=== PATIENT | female | born 1980 | race Caucasian/White ===

== ENCOUNTER 2017-01-25 16:07 | Emergency (ER) | payer OTHER ==
[~2017-01-25] VITALS: Ht 180.3 cm; Wt 71.5 kg
[~2017-01-25 16:07] MED LIST: FLNCV PO
[2017-01-25 16:09] VITALS: TEMP 36.6; Ht 180.3 cm; Wt 71.5 kg
[2017-01-25] MEDS ORDERED: ACET325T96 PO (16:35)
[2017-01-25] MEDS ORDERED: IBUP-103 PO (16:35)
[2017-01-25] MEDS ORDERED: CLIN150C PO (16:35)
[2017-01-25 17:12] LABS: BASO % 0.4 %; BASO ABS # 0.05 K/uL (0-0.2); COMPLETE YES; EOS % 4.2 %; HEMATOCRIT 40.9 % (37-47); IG% 0.3 %; LYMPH % 25.3 %; LYMPH ABS # 3.32 K/uL (1.2-3.4); MEAN CELL VOLUME 91.1 fL (80-100); MEAN CORPUSCULAR HEMOGLOBIN 31.8 pg (25-34); MEAN PLATELET VOLUME 10.2 fL (7.4-10.4); MONO % 4.3 %; NEUT % 65.5 %; PLATELET COUNT 308 K/uL (130-400); RED BLOOD COUNT 4.49 M/uL (4.2-5.4); WHITE BLOOD COUNT 13.13 K/uL (4.8-10.8)
[2017-01-25] MEDS ORDERED: OPTIRAY 320 IV PRN (17:15)
[2017-01-25] MEDS ORDERED: ONDANSETRON INJ 2 MG/ML 2 ML VIAL IV STA (17:26)
[2017-01-25] MEDS ORDERED: MoRPHine SULFATE 10 MG/ML CARP/VIAL IV STA (17:26)
[2017-01-25] MEDS ORDERED: KETOROLAC TROMETHAMINE 30 MG/ML VIAL IV STA (17:26)
--- NOTE | 2017-01-25 17:52 | DIAGNOSTIC IMAGING REPORT ---
CT SCAN OF THE FACIAL BONES WITH IV CONTRAST CLINICAL HISTORY: Right facial pain and swelling. Clinical concern for Nasim's angina. COMPARISON STUDY: No priors. TECHNIQUE: High-resolution CT scan of the facial bones is performed following the IV administration of 118 cc of Optiray 320. Images are reviewed in the axial, sagittal, and coronal planes. IV contrast was administered without complication. CT DOSE: 732.86 mGy.cm FINDINGS: The skeletal structures are well mineralized. There is no evidence of facial bone fracture. The bony orbits are intact and the orbital contents are within normal limits. The zygomatic arches, nasal bones, and pterygoid plates are preserved. The maxilla and mandible are intact. There are no layering blood products within the paranasal sinuses. The sinuses and mastoids are clear. The visualized calvarium and upper cervical spine are maintained. Partially imaged brain parenchyma is within normal limits. Intracranial vessels at the skull base are patent. There is a small periapical lucency identified involving a right mandibular molar seen on axial image #158. There is no associated cortical breakthrough. A large periapical lucency is seen involving the right maxillary central and lateral incisors. A dental kirsten is seen involving the right maxillary central incisor. Additional caries are seen involving left maxillary molars. The pharyngeal soft tissues are normal as visualized. There is minimal deep soft tissue induration seen overlying the right mandible at the site of interest marked on the patient. No organized fluid collection is seen to indicate abscess. IMPRESSION: 1. There is no evidence of facial bone fracture. 2. There are scattered dental caries and periapical lucencies as detailed above. There is no clear evidence of cortical breakthrough, and no dental abscess is seen. Follow-up with dentistry is recommended. 3. There is mild induration of the deep soft tissues overlying the inferior aspect of the right mandible as above. This is indeterminant and may represent infection/cellulitis. No fluid collection is seen at this site. There is no convincing CT evidence of Nasim's angina. Note that this is a clinical diagnosis and clinical correlation will be required. Electronically signed by: Seth Hernandez M.D. 01/25/2017 5:50 PM Dictated Date/Time: 01/25/2017 5:41 PM
[2017-01-25] MEDS ORDERED: HYDR-5688 PO (18:10)
--- NOTE | 2017-01-25 18:12 | EMERGENCY ROOM VISIT NOTE ---
ED Visit Note First contact with patient: 16:29 CHIEF COMPLAINT: Right lower dental and jaw pain 10 days HISTORY OF PRESENT ILLNESS: Patient is a 36-year-old white female who presents to emergency department for evaluation of right-sided dental injury.. Patient states that she lost a filling from her right lower molar sometime ago, but only recently began to experience discomfort. She states that she noticed increasing pain and developed some swelling of her face on January 16 and was seen at an urgent care center where she was prescribed Augmentin. She was set up to see the dentist which she did on January 21. She reports that she had a root canal performed at Dr. Wu's office. She was told to continue the Augmentin. She had a temporary filling placed. She did fine the following day , then returned with increased pain and swelling. She went back to the office on the . The dental sound assistant took part of the filling off. She does report of bloody and foul tasting discharge in her mouth. She has been using Tylenol and ibuprofen for pain, which was initially controlling her symptoms and now has begun to be ineffective. She was switched from Augmentin to clindamycin 300 mg 3 times daily. She notes the swelling has gone down, but she continues to experience significant pain which she rates an 8/10 presently. It is located in the right jaw, radiating slightly to the sublingual space. Denies fever, chills, or loss of appetite. REVIEW OF SYSTEMS: Review of systems as per HPI. All other systems reviewed were negative. 10 systems reviewed. PMH: Electronic medical records are reviewed and summarized as above/below. See Problem List. SOCIAL HISTORY: Patient lives at home with her family. Smoker.. PHYSICAL EXAM: Vital Signs: Reviewed Nurse's notes. CONSTITUTIONAL: Patient is a well-appearing 36-year-old white female who is awake and alert and in no acute distress. Vital signs are stable. EARS: Tympanic membranes intact, not inflamed, have normal contour. External canals clear. MOUTH: Overall the patient has good dentition. The right lower molar in question has an obvious cavity, with temporary filling and is tender to percussion. There is slight swelling along the gumline although no focal abscess. Mucous membranes moist, no lesions, tongue and gums appear normal. THROAT: No pharyngeal injection, exudates, or tonsillar hypertrophy. Airway is patent. She has pain with opening her mouth although no yeison trismus. NECK: No lymphadenopathy. . FACE: She has tenderness to palpation over the angle of the mandible on the right, slight swelling, no increased warmth or redness. The skin is intact. No lymphangitic streaking. HEART: Regular rate and rhythm without murmur, ectopy, gallop, or rub. LUNGS: Clear to auscultation. Was drawn NEUROLOGICAL: Alert and cooperative. Sensory and motor functions grossly intact. EMERGENCY DEPARTMENT COURSE: IV access was obtained. CBC demonstrated a mildly elevated white count. She was medicated with Toradol 30 mg, Zofran 4 mg and morphine 6 mg IV with good relief of her pain. CT scan of the face with IV contrast was obtained. Findings are noted below. With the IV medications, the patient reported significant relief of her pain and felt much improved. While she does have some discomfort opening her mouth she does not have yeison trismus and I suspect her problem is more related to inadequate pain management rather deep space infection of the head or neck. She does not have any evidence for facial cellulitis or drainable abscess. She will be placed on Watchung for pain until she can follow-up with the dentist. She was discharged home with her driving. The patient rated her discomfort a 1/[address] SCAN OF THE FACIAL BONES WITH IV CONTRAST CLINICAL HISTORY: Right facial pain and swelling. Clinical concern for Nasim's angina. COMPARISON STUDY: No priors. TECHNIQUE: High-resolution CT scan of the facial bones is performed following the IV administration of 118 cc of Optiray 320. Images are reviewed in the axial, sagittal, and coronal planes. IV contrast was administered without complication. CT DOSE: 732.86 mGy.cm FINDINGS: The skeletal structures are well mineralized. There is no evidence of facial bone fracture. The bony orbits are intact and the orbital contents are within normal limits. The zygomatic arches, nasal bones, and pterygoid plates are preserved. The maxilla and mandible are intact. There are no layering blood products within the paranasal sinuses. The sinuses and mastoids are clear. The visualized calvarium and upper cervical spine are maintained. Partially imaged brain parenchyma is within normal limits. Intracranial vessels at the skull base are patent. There is a small periapical lucency identified involving a right mandibular molar seen on axial image #158. There is no associated cortical breakthrough. A large periapical lucency is seen involving the right maxillary central and lateral incisors. A dental kirsten is seen involving the right maxillary central incisor. Additional caries are seen involving left maxillary molars. The pharyngeal soft tissues are normal as visualized. There is minimal deep soft tissue induration seen overlying the right mandible at the site of interest marked on the patient. No organized fluid collection is seen to indicate abscess. IMPRESSION: 1. There is no evidence of facial bone fracture. 2. There are scattered dental caries and periapical lucencies as detailed above. There is no clear evidence of cortical breakthrough, and no dental abscess is seen. Follow-up with dentistry is recommended. 3. There is mild induration of the deep soft tissues overlying the inferior aspect of the right mandible as above. This is indeterminant and may represent infection/cellulitis. No fluid collection is seen at this site. There is no convincing CT evidence of Nasim's angina. Note that this is a clinical diagnosis and clinical correlation will be required. Problem List Medical Problems: (1) Vaginal delivery Status: Resolved Current/Historical Medications Scheduled Clindamycin Hcl (Cleocin), 300 MG PO BID Scheduled PRN Acetaminophen Tab (Tylenol), 650 MG PO Q3 PRN for Pain or Fever Hydrocodone/Acetaminophen 5MG/325MG (Watchung 5MG/325MG), 1-2 TABLETS PO Q4 PRN for Pain Ibuprofen Tab (Advil), 800 MG PO q3 PRN for Pain or Fever Allergies Coded Allergies: Sulfa Drugs (Verified Allergy, Unknown, UNK, 04/21/10) Vital Signs Date Time Temp Pulse Resp B/P Pulse Ox O2 Delivery O2 Flow Rate FiO2 01/25/17 18:49 59 18 136/92 100 01/25/17 16:09 36.6 75 18 145/94 98 Room Air Laboratory Results 01/25/17 17:00 Red Blood Count 4.49, Mean Corpuscular Volume 91.1, Mean Corpuscular Hemoglobin 31.8, Mean Corpuscular Hemoglobin Concent 35.0, Mean Platelet Volume 10.2, Neutrophils (%) (Auto) 65.5, Lymphocytes (%) (Auto) 25.3, Monocytes (%) (Auto) 4.3, Eosinophils (%) (Auto) 4.2, Basophils (%) (Auto) 0.4, Neutrophils # (Auto) 8.60, Lymphocytes # (Auto) 3.32, Monocytes # (Auto) 0.57, Eosinophils # (Auto) 0.55, Basophils # (Auto) 0.05 Test 01/25/17 17:00 White Blood Count 13.13 K/uL (4.8-10.8) Red Blood Count 4.49 M/uL (4.2-5.4) Hemoglobin 14.3 g/dL (12.0-16.0) Hematocrit 40.9 % (37-47) Mean Corpuscular Volume 91.1 fL (80-100) Mean Corpuscular Hemoglobin 31.8 pg (25-34) Mean Corpuscular Hemoglobin Concent 35.0 g/dl (32-36) Platelet Count 308 K/uL (130-400) Mean Platelet Volume 10.2 fL (7.4-10.4) Neutrophils (%) (Auto) 65.5 % Lymphocytes (%) (Auto) 25.3 % Monocytes (%) (Auto) 4.3 % Eosinophils (%) (Auto) 4.2 % Basophils (%) (Auto) 0.4 % Neutrophils # (Auto) 8.60 K/uL (1.4-6.5) Lymphocytes # (Auto) 3.32 K/uL (1.2-3.4) Monocytes # (Auto) 0.57 K/uL (0.11-0.59) Eosinophils # (Auto) 0.55 K/uL (0-0.5) Basophils # (Auto) 0.05 K/uL (0-0.2) RDW Standard Deviation 44.4 fL (36.4-46.3) RDW Coefficient of Variation 13.3 % (11.5-14.5) Immature Granulocyte % (Auto) 0.3 % Immature Granulocyte # (Auto) 0.04 K/uL (0.00-0.02) Medications Administered Medications (Trade) Dose Ordered Sig/Angel Luis Route Start Time Stop Time Status Last Admin Dose Admin Ondansetron HCl (Zofran Inj) 4 mg NOW STAT IV 01/25/17 17:26 01/25/17 17:27 DC 01/25/17 17:33 4 MG Ketorolac Tromethamine (Toradol Inj) 30 mg NOW STAT IV 01/25/17 17:26 01/25/17 17:27 DC 01/25/17 17:32 30 MG Morphine Sulfate (MoRPHine SULFATE INJ) 6 mg NOW STAT IV 01/25/17 17:26 01/25/17 17:27 DC 01/25/17 17:32 6 MG Acetaminophen/ Hydrocodone Bitart (Watchung 5/325mg Home Pack) 1 homepack UD ONCE PO 01/25/17 18:15 01/25/17 18:16 DC 01/25/17 18:41 1 HOMEPACK Departure Information Impression Primary Impression: Periapical abscess Additional Impression: Jaw pain Prescriptions Hydrocodone/Acetaminophen 5MG/325MG (Watchung 5MG/325MG) Tab 1-2 TABLETS PO Q4 Y for Pain, #20 TAB For Initial Treatment Prov: Yolanda Gibson PA 01/25/17 Referrals Yosvany Chino M.D. (PCP) Patient Instructions My [facility] Additional Instructions DO NOT drive, drink alcohol, operate machinery, or perform dangerous activities today. You were given medications in the ER that can affect your ability to safely function or operate a vehicle. Hydrocodone/Acetaminophen (Watchung) 5/325 mg: Take 1-2 pills every four hours for breakthrough pain. Avoid alcohol, operating machinery or dangerous equipment, working on ladders or roofs, DRIVING, or situations where being under the influence may be dangerous. It is recommended to use an [id number] stool softener such as Colace, 100mg twice daily while taking this medication to avoid constipation. Complete course of clindamycin as previously prescribed. Ibuprofen(Motrin, Advil) may be used for fever or pain. Use 600mg every six hours as needed. Take with food. Avoid using more than 2400mg in a 24 hour period. Do not use 2400mg per day for more than three consecutive days without physician direction. Prolonged inappropriate use can lead to stomach upset or ulcers. (AND/OR) Acetaminophen(Tylenol) may be used for fever or pain. Use 1000mg every six hours as needed. Avoid using more than 4000mg in a 24 hour period. Saltwater gargles after meals and before bedtime. Soft foods. Followup with your dentist this week as scheduled. Return to the emergency department for worsening pain, inability to swallow, fevers, vomiting, worsening symptoms or as needed. Problem Qualifiers
[2017-01-25] MEDS ORDERED: NORCO 5/325MG HOME PACK PO ONE (18:15)
[2017-01-25 18:49] VITALS: BP 136/92; PULSE 59; O2SAT 100
== END 2017-01-25 18:51 | disposition home or self-care (01) ==
LOC: C.EDB 16:08 → C.EDD 18:51
DX: K04.7 Periapical abscess without sinus (principal); R68.84 Jaw pain; F17.210 Nicotine dependence, cigarettes, uncomplicated

== ENCOUNTER 2017-04-01 02:26 | Emergency (ER) | payer OTHER ==
[~2017-04-01] VITALS: Ht 180.3 cm; Wt 73.0 kg
[~2017-04-01 02:26] MED LIST changes: +ACET325T96 PO; +CLIN150C PO; -FLNCV PO; +HYDR-5688 PO; +IBUP-103 PO
[2017-04-01 02:36] VITALS: Ht 180.3 cm; Wt 73.0 kg
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
[2017-04-01 03:36] LABS: BENZODIAZEPINE, URINE NEG (NEG); COCAINE,URINE NEG (NEG); PHENCYCLIDINE, URINE NEG (NEG)
[2017-04-01 03:36] LABS: HEMATOCRIT 43.3 % (37-47); MEAN CELL VOLUME 91.9 fL (80-100); MEAN CORPUSCULAR HEMOGLOBIN 32.3 pg (25-34); MEAN CORPUSCULAR HGB CONC 35.1 g/dl (32-36); MEAN PLATELET VOLUME 10.5 fL (7.4-10.4); PLATELET COUNT 257 K/uL (130-400); RED BLOOD COUNT 4.71 M/uL (4.2-5.4); WHITE BLOOD COUNT 10.04 K/uL (4.8-10.8)
[2017-04-01 03:57] LABS: ALT/SGPT 20 U/L (12-78); AST/SGOT 8 U/L (15-37); BLOOD UREA NITROGEN 9 mg/dl (7-18); BUN/CREATININE RATIO 15.5 (10-20); CALCIUM 8.8 mg/dl (8.5-10.1); CARBON DIOXIDE 22 mmol/L (21-32); CHLORIDE 113 mmol/L (98-107); CREATININE 0.61 mg/dl (0.60-1.20); GLUCOSE 99 mg/dl (70-99); POTASSIUM 3.6 mmol/L (3.5-5.1); SODIUM 143 mmol/L (136-145)
[2017-04-01 04:03] LABS: ACETAMINOPHEN < 2 ug/ml (10-30)
[2017-04-01 04:08] LABS: ALKALINE PHOSPHATASE 71 U/L (45-117); THYROID STIMULATING HORMONE 0.939 uIu/ml (0.300-4.500)
[2017-04-01 06:08] LABS: URINE APPEARANCE CLEAR (CLEAR); URINE BILIRUBIN NEG (NEG); URINE COLOR YELLOW; URINE NITRITE NEG (NEG); URINE PH 6.5 (4.5-7.5); URINE SPECIFIC GRAVITY 1.008 (1.000-1.030); UROBILINOGEN NEG (NEG)
[2017-04-01 06:20] LABS: MANUAL MICROSCOPIC REQUIRED? NO; REVIEW REQ? NO
[2017-04-01] MEDS ORDERED: DIPHTHERIA/TETANUS/PERTUSSIS 0.5 ML SYR/VIAL IM. ONE (08:00)
[2017-04-01] MEDS ORDERED: ONDANSETRON 4MG OD TAB ONE (10:51)
[2017-04-01] MEDS ORDERED: LORAZEPAM 0.5 MG TAB ONE (10:53)
[2017-04-01] MEDS ORDERED: LORAZEPAM 0.5 MG TAB SL PRN (11:00)
[2017-04-01 13:44] VITALS: BP 137/98; PULSE 94; O2SAT 95
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
== END 2017-04-01 13:43 ==
LOC: C.EDA 02:27
DX: S51.812A Laceration without foreign body of left forearm, initial encounter (principal); S51.811A Laceration without foreign body of right forearm, initial encounter; X78.1XXA Intentional self-harm by knife, initial encounter; S40.211A Abrasion of right shoulder, initial encounter; X58.XXXA Exposure to other specified factors, initial encounter; F17.200 Nicotine dependence, unspecified, uncomplicated; F10.129 Alcohol abuse with intoxication, unspecified; Z23 Encounter for immunization

== ENCOUNTER 2020-04-05 18:38 | Inpatient (IN) ==
[2020-04-05] MEDS ORDERED: ONDANSETRON INJ 2 MG/ML 2 ML VIAL IV STA (18:56)
[2020-04-05] MEDS ORDERED: MoRPHine SULFATE 10 MG/ML CARP/VIAL IV STA (18:56)
[2020-04-05] MEDS ORDERED: SODIUM CHLORIDE 0.9% 1000ML 1,000 ML IV ONE (18:56)
[2020-04-05] MEDS ORDERED: KETOROLAC TROMETHAMINE 15 MG/ML VIAL IV STA (18:56)
[2020-04-05 19:15] LABS: Basophils # (auto) 0.03 K/uL (0-0.2); Basophils % (auto) 0.3 %; Eosinophils % (auto) 1.1 %; Hematocrit (blood only) 45.1 % (37-47); Hemoglobin 15.9 g/dL (12.0-16.0); Immature Granulocytes # (auto) 0.02 K/uL (0.00-0.02); Immature Granulocytes % (auto) 0.2 %; Lymphocytes # (auto) 3.56 K/uL (1.2-3.4); Lymphocytes % (auto) 37.9 %; Mean Corpuscular Hemoglobin 36.5 pg (25-34); Mean Corpuscular Hgb Conc 35.3 g/dL (32-36); Mean Corpuscular Volume 103.4 fL (80-100); Monocytes # (auto) 0.53 K/uL (0.11-0.59); Monocytes % (auto) 5.6 %; Neutrophils # (auto) 5.15 K/uL (1.4-6.5); Neutrophils % (auto) 54.9 %; Platelet Count 169 K/uL (130-400); RDW Standard Deviation 49.5 fL (36.4-46.3); Red Blood Count 4.36 M/uL (4.2-5.4); White Blood Count 9.39 K/uL (4.8-10.8)
[2020-04-05 19:40] LABS: Albumin Level 3.3 gm/dl (3.4-5.0); BUN Creatinine Ratio 6.6 (10-20); Calcium 9.3 mg/dl (8.5-10.1); Creatinine Clr Calc Pharmacy 145.8 ml/min; Est GFR (African American) 131.2; Est GFR (Non-African American) 113.2; Potassium 3.4 mmol/L (3.5-5.1)
[2020-04-05 19:44] LABS: Albumin Globulin Ratio 0.8 (0.9-2); Bilirubin,Total 2.1 mg/dl (0.2-1); Total Protein 7.3 gm/dl (6.4-8.2)
[2020-04-05] MEDS ORDERED: HYDROmorphone INJ 0.5 MG/0.5 ML SYR IV STA (19:52)
--- NOTE | 2020-04-05 20:23 | CT Scan Report ---
CT abd pelvis wo con CT DOSE: 504.63 mGy.cm HISTORY: Pain llq pain, vomiting TECHNIQUE: Multiaxial CT images of the abdomen and pelvis were performed without contrast. A dose lo wering technique was utilized adhering to the principles of ALARA. COMPARISON STUDY: 03/11/2019 FINDINGS: Lung bases are clear. Mild fatty replacement of the liver. Spleen is unremarkable. The pancreatic body and tail shows evidence for hyperdensity and enlargement. There is moderate perip ancreatic infiltrative change. This appearance is suggestive of hemorrhagic pancreatitis. Kidneys negative for hydronephrosis. The bowel pattern is nonobstructive. IMPRESSION: 1. Findings consistent with hemorrhagic pancreatitis involving the pancreatic tail and to a lesser ex tent pancreatic body. 2. Moderate peripancreatic infiltrative change. 3. No evidence for abscess collection or pseudocyst. 4. Fatty replacement of the liver. 5. Otherwise negative study. ACT 112: Negative or not required by law. The above report was generated using voice recognition software. It may contain grammatical, syntax or spelling errors. Electronically signed by: Ace Barclay M.D. 04/05/2020 8:21 PM
[2020-04-05] MEDS ORDERED: HYDROmorphone INJ 1 MG/ML SYRINGE IV STA (20:45)
--- NOTE | 2020-04-05 22:13 | Emergency Department Note ---
History of Present Illness General Chief complaint: Abdominal Pain Stated complaint: ABD PAIN,VOMITING Time Seen by Provider: 04/05/20 18:47 Source: patient Mode of arrival: ambulatory Limitations: no limitations History of Present Illness Maximum Pain Intensity: 3 This patient is a 39-year-old female who presents to the emergency department for evaluation of abdominal pain. Patient reports that her pain started suddenly 3 to 4 hours ago. She reports that after eating, she had a sudden onset of left lower quadrant abdominal pain and vomiting. She has had multiple episodes of vomiting since then. She reports the pain is severe and rates her discomfort a 10/10. She states the pain was in her back but is now only in the abdomen. She feels slightly better when she holds her abdomen. She states that nothing worsens the pain. The pain is constant and sharp in nature. She denies any history of similar symptoms. She denies any urinary symptoms, fevers or change in bowel movements. She does report daily alcohol use and drinks a half bottle of rum each day. Home Medications Home Medications Medication Instructions Recorded Confirmed Type No Known Home Medications 04/05/20 04/05/20 History Allergies Allergy/AdvReac Type Severity Reaction Status Date / Time Sulfa (Sulfonamide Allergy Intermediate HIVES A Verified 04/05/20 19:30 Antibiotics) CHILD Past Med/Surg History Medical History No significant past medical history Family History Other Family history of thyroid problem Social History Preferred Language: Maltese marital status: current occupational status: employed Feels Safe at Home: Yes Smoking Status: Current every day smoker Hx Alcohol Use: Yes Alcohol type Comment: Edy's Wicked Alcohol Intake Frequency: Daily Alcohol Intake Frequency Comment: 4 Edy's Wicked for past 2 years Review of Systems A total of 10 systems reviewed and were otherwise negative Physical Exam Vital Signs Vital Signs - 24 hr 04/05/20 18:41 04/05/20 19:11 04/05/20 19:23 Temperature 36.6 C Temperature Source Oral Pulse Rate 116 H 90 88 Pulse Rate from SpO2 Sensor 90 90 Respiratory Rate 20 16 12 Respiratory Effort / Characteristics Non-Labored Spontaneous Respiratory Depth Normal Respiratory Pattern Regular Blood Pressure 154/108 H 164/102 H Blood Pressure Mean 123 118 Pulse Oximetry 95 97 96 Oxygen Delivery Method Room Air Sepsis Recent Fever Within 48 Hours No Sepsis New/Unexplained Change in Mental Status No Sepsis Action Taken by Nursing No Action Required 04/05/20 19:30 04/05/20 20:08 04/05/20 20:11 Temperature Temperature Source Pulse Rate 89 85 88 Pulse Rate from SpO2 Sensor 89 89 Respiratory Rate 12 18 20 Respiratory Effort / Characteristics Respiratory Depth Respiratory Pattern Blood Pressure 172/126 H 172/146 H Blood Pressure Mean 139 159 Pulse Oximetry 97 100 Oxygen Delivery Method Room Air Sepsis Recent Fever Within 48 Hours Sepsis New/Unexplained Change in Mental Status Sepsis Action Taken by Nursing 04/05/20 20:12 04/05/20 20:30 04/05/20 20:31 Temperature Temperature Source Pulse Rate 88 82 96 H Pulse Rate from SpO2 Sensor 87 82 96 H Respiratory Rate 23 16 18 Respiratory Effort / Characteristics Respiratory Depth Respiratory Pattern Blood Pressure Blood Pressure Mean Pulse Oximetry 100 98 100 Oxygen Delivery Method Sepsis Recent Fever Within 48 Hours Sepsis New/Unexplained Change in Mental Status Sepsis Action Taken by Nursing 04/05/20 20:57 04/05/20 20:58 04/05/20 21:00 Temperature Temperature Source Pulse Rate 81 77 84 Pulse Rate from SpO2 Sensor 81 78 85 Respiratory Rate 20 17 16 Respiratory Effort / Characteristics Respiratory Depth Respiratory Pattern Blood Pressure 176/114 H Blood Pressure Mean 119 Pulse Oximetry 100 99 99 Oxygen Delivery Method Room Air Room Air Sepsis Recent Fever Within 48 Hours Sepsis New/Unexplained Change in Mental Status Sepsis Action Taken by Nursing 04/05/20 21:01 04/05/20 21:30 04/05/20 21:32 Temperature Temperature Source Pulse Rate 84 80 80 Pulse Rate from SpO2 Sensor 84 83 84 Respiratory Rate 21 17 12 Respiratory Effort / Characteristics Respiratory Depth Respiratory Pattern Blood Pressure 153/89 H 155/88 H Blood Pressure Mean 116 103 Pulse Oximetry 99 97 94 Oxygen Delivery Method Room Air Room Air Room Air Sepsis Recent Fever Within 48 Hours Sepsis New/Unexplained Change in Mental Status Sepsis Action Taken by Nursing VITALS: Vitals are noted on the nurse's note and reviewed by myself. GENERAL: This is a 39-year-old female, in moderate distress secondary to pain. SKIN: The skin was without rashes, erythema, edema, or bruising. EARS: External auditory canals clear, tympanic membranes pearly stahl without erythema or effusion bilaterally. EYES: Pupils equal round and reactive to light and accommodation. Extraocular movements intact. MOUTH: Mucous membranes moist. Tonsils are not enlarged. Pharynx without erythema or exudate. NECK: Supple without nuchal rigidity. No lymphadenopathy. HEART: Regular rate and rhythm without murmurs gallops or rubs. LUNGS: Clear to auscultation bilaterally without wheezes, rales or rhonchi. ABDOMEN: Positive bowel sounds x 4. Abdomen is soft and nondistended. There is tenderness and guarding in the left lower quadrant. No rebound tenderness. NEURO: Patient was alert and oriented to person place and time. Course Reevaluation(s) Reevaluation #1: Patient was reevaluated and is having continued severe pain. 0.5 mg Dilaudid IV was ordered. Reevaluation #2: Patient reevaluated and findings discussed with the patient. She is agreeable to admission. She reports she is still having severe pain and 1 mg of Dilaudid was ordered. Consultations Consultation #1: Dr. Acosta [facility] hospitalist Administered Medications Discontinued Medications Hydromorphone HCl (Dilaudid) 0.5 mg IV NOW STA Stop: 04/05/20 19:53 Last Admin: 04/05/20 20:11 Dose: 0.5 mg Documented by: [id number] Hydromorphone HCl (Dilaudid) 1 mg IV NOW STA Stop: 04/05/20 20:46 Last Admin: 04/05/20 20:57 Dose: 1 mg Documented by: [id number] Sodium Chloride (Nss 1000ml) 1,000 mls @ 999 mls/hr IV .Q1H1M ONE Stop: 04/05/20 19:56 Last Infusion: 04/05/20 20:07 Dose: 0 mls/hr Documented by: [id number] Admin: 04/05/20 19:05 Dose: 999 mls/hr Documented by: [id number] Ketorolac Tromethamine (Toradol) 15 mg IV NOW STA Stop: 04/05/20 18:57 Last Admin: 04/05/20 19:07 Dose: 15 mg Documented by: [id number] Morphine Sulfate (Morphine Sulfate) 6 mg IV NOW STA Stop: 04/05/20 18:57 Last Admin: 04/05/20 19:09 Dose: 6 mg Documented by: [id number] Ondansetron HCl (Zofran) 4 mg IV NOW STA Stop: 04/05/20 18:57 Last Admin: 04/05/20 19:05 Dose: 4 mg Documented by: [id number] Medical Decision Making Differential Diagnosis Differential diagnosis includes appendicitis, ovarian cyst, ovarian torsion, ectopic , TOA, PID, infections, diverticulitis, UTI, obstruction, mesenteric ischemia, aortic pathology, inflammatory bowel disease, renal colic, PUD, pancreatitis, biliary pathology, hernia, volvulus, constipation, as well as other pathologies. Home Medications Current Medication List: was personally reviewed by me Laboratory Data Attestation: I reviewed the patient's lab results. Result diagrams: 04/05/20 18:54 04/05/20 18:54 Lab Results 04/05/20 04/05/20 Range/Units 18:54 18:54 WBC 9.39 (4.8-10.8) K/uL RBC 4.36 (4.2-5.4) M/uL Hgb 15.9 (12.0-16.0) g/dL Hct 45.1 (37-47) % MCV 103.4 H (80-100) fL MCH 36.5 H (25-34) pg MCHC 35.3 (32-36) g/dL RDW Std Deviation 49.5 H (36.4-46.3) fL RDW Coeff of Nicolette 13.0 (11.5-14.5) % Plt Count 169 (130-400) K/uL MPV 12.0 H (7.4-10.4) fL Immature Gran % (Auto) 0.2 % Neut % (Auto) 54.9 % Lymph % (Auto) 37.9 % Preston % (Auto) 5.6 % Eos % (Auto) 1.1 % Baso % (Auto) 0.3 % Neut # (Auto) 5.15 (1.4-6.5) K/uL Lymph # (Auto) 3.56 H (1.2-3.4) K/uL Preston # (Auto) 0.53 (0.11-0.59) K/uL Eos # (Auto) 0.10 (0-0.5) K/uL Baso # (Auto) 0.03 (0-0.2) K/uL Immature Gran # (Auto) 0.02 (0.00-0.02) K/uL Sodium 137 (136-145) mmol/L Potassium 3.4 L (3.5-5.1) mmol/L Chloride 99 (98-107) mmol/L Carbon Dioxide 21 (21-32) mmol/L Anion Gap 17.0 H (3-11) BUN 4 L (7-18) mg/dl Creatinine 0.64 (0.6-1.2) mg/dl Est Cr Clr Drug Dosing 145.8 ml/min Est GFR ( Amer) 131.2 Est GFR (Non-Af Amer) 113.2 BUN/Creatinine Ratio 6.6 L (10-20) Glucose 124 H (70-99) mg/dl Calcium 9.3 (8.5-10.1) mg/dl Total Bilirubin 2.1 H (0.2-1) mg/dl AST 164 H (15-37) U/L ALT 71 (12-78) U/L Alkaline Phosphatase 177 H (45-117) U/L Total Protein 7.3 (6.4-8.2) gm/dl Albumin 3.3 L (3.4-5.0) gm/dl Globulin 4.0 (2.5-4.0) gm/dl Albumin/Globulin Ratio 0.8 L (0.9-2) Lipase 536 H (73-393) U/L Specimen Hemolysis Imaging Data Attestation: I personally reviewed and interpreted this imaging study as follows: Radiologist's Impression: CT abd pelvis wo con CT DOSE: 504.63 mGy.cm HISTORY: Pain llq pain, vomiting TECHNIQUE: Multiaxial CT images of the abdomen and pelvis were performed without contrast. A dose lowering technique was utilized adhering to the principles of ALARA. COMPARISON STUDY: 03/11/2019 FINDINGS: Lung bases are clear. Mild fatty replacement of the liver. Spleen is unremarkable. The pancreatic body and tail shows evidence for hyperdensity and enlargement. There is moderate peripancreatic infiltrative change. This appearance is suggestive of hemorrhagic pancreatitis. Kidneys negative for hydronephrosis. The bowel pattern is nonobstructive. IMPRESSION: 1. Findings consistent with hemorrhagic pancreatitis involving the pancreatic tail and to a lesser extent pancreatic body. 2. Moderate peripancreatic infiltrative change. 3. No evidence for abscess collection or pseudocyst. 4. Fatty replacement of the liver. 5. Otherwise negative study. Blood Pressure Blood Pressure Findings: Elevated blood pressure Blood Pressure Disposition: further management by hospitalist SHASTA Corbin Continuous telemetry monitor: Order was placed for continuous telemetry monitor. Patient was placed on the telemetry monitor. Patient was noted to be in normal sinus rhythm at an initial rate of 116 bpm. The patient is a 39-year-old female who presents today complaining of left lower abdominal pain with a sudden onset a few hours prior to arrival. Labs revealed no leukocytosis or concerning anemia. Mildly elevated anion gap at 17. Labs otherwise significant for elevated AST of 164, alkaline phosphatase 177. Lipase is elevated at 536. CT of the abdomen/pelvis was performed and reviewed by radiology and shows evidence of hemorrhagic pancreatitis. Patient received multiple doses of IV pain medication while in the emergency department, as well as IV Zofran and a 1 L normal saline bolus. Patient was informed of all findings. I spoke with the [facility] hospitalist, Dr. Acosta, who agreed to evaluate the patient for further care. Impression & Plan Acute hemorrhagic pancreatitis Discharge Plan Visit Data *Final* Discharge Date/Time: 04/05/20 22:17 Chief Complaint: Abdominal Pain Stated Complaint: ABD PAIN,VOMITING ED Provider: Luis Kwan ED Midlevel Provider: Tsering Laird Discharge Problem: Acute hemorrhagic pancreatitis Patient Disposition: Admitted As Inpatient Discharge Instructions Interventions: ED Discharge Assessment Last Done: 04/05/20 22:17
[2020-04-05] MEDS ORDERED: GABAPENTIN 1200MG ALCOHOL WITHDRAWAL LOAD PO STA (22:34)
[2020-04-05] MEDS ORDERED: NITROGLYCERIN SL 0.4 MG/TAB TAB SL PRN (22:34)
[2020-04-05] MEDS ORDERED: MULTI-VITAMIN INFUSION 10 ML, THIAMINE HCL 100 MG, FOLIC ACID 1 MG in SODIUM CHLORIDE 0... IV ONE (22:34)
[2020-04-05] MEDS ORDERED: ONDANSETRON INJ 2 MG/ML 2 ML VIAL IV PRN (22:34)
[2020-04-05] MEDS ORDERED: LORazepam 3 MG/6 ML VIAL IV PRN (22:34)
[2020-04-05] MEDS ORDERED: LORazepam 1 MG/2 ML VIAL IV PRN (22:34)
[2020-04-05] MEDS ORDERED: ATIVAN IV ALCOHOL WITHDRAWL IV PRN (22:34)
[2020-04-05] MEDS ORDERED: ACETAMINOPHEN 325 MG TAB PO PRN (22:34)
[2020-04-05] MEDS ORDERED: LORazepam 2 MG/4 ML VIAL IV PRN (22:34)
[2020-04-05] MEDS ORDERED: cloNIDine HCL 0.1 MG TAB PO PRN (22:34)
[2020-04-05] MEDS ORDERED: GABAPENTIN 600 MG TAB PO SCH (23:00)
[2020-04-05] MEDS: PANTOprazole 40 MG in SYRINGE 0 ML IV SCH (23:18)
[2020-04-05] MEDS: THIAMINE HCL 100 MG in SYRINGE 9 ML IV SCH (23:18)
[2020-04-05] MEDS: FOLIC ACID 1 MG in SYRINGE 9.8 ML IV SCH (23:19)
[2020-04-05] MEDS: HYDROmorphone INJ 1 MG/ML SYRINGE IV PRN (23:30)
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
[2020-04-06] MEDS: LACTATED RINGER'S 1,000 ML IV SCH ×2 (01:38→05:41)
[2020-04-06] MEDS: HYDROmorphone INJ 1 MG/ML SYRINGE IV PRN ×5 (04:06→18:04)
[2020-04-06] MEDS: GABAPENTIN 600 MG TAB PO SCH ×3 (04:06→10:57)
[2020-04-06 05:06] LABS: Basophils # (auto) 0.04 K/uL (0-0.2); Basophils % (auto) 0.5 %; Eosinophils # (auto) 0.08 K/uL (0-0.5); Eosinophils % (auto) 0.9 %; Hemoglobin 13.4 g/dL (12.0-16.0); Immature Granulocytes # (auto) 0.01 K/uL (0.00-0.02); Immature Granulocytes % (auto) 0.1 %; Lymphocytes # (auto) 3.12 K/uL (1.2-3.4); Lymphocytes % (auto) 36.9 %; Mean Corpuscular Hemoglobin 35.9 pg (25-34); Mean Corpuscular Hgb Conc 34.4 g/dL (32-36); Mean Corpuscular Volume 104.6 fL (80-100); Mean Platelet Volume 11.4 fL (7.4-10.4); Monocytes # (auto) 0.62 K/uL (0.11-0.59); Monocytes % (auto) 7.3 %; Neutrophils # (auto) 4.59 K/uL (1.4-6.5); Neutrophils % (auto) 54.3 %; Platelet Count 140 K/uL (130-400); RDW Coefficient of Variation 13.1 % (11.5-14.5); Red Blood Count 3.73 M/uL (4.2-5.4); White Blood Count 8.46 K/uL (4.8-10.8)
[2020-04-06 05:29] LABS: BUN Creatinine Ratio 9.7 (10-20); Creatinine Clr Calc Pharmacy 163.3 ml/min; Est GFR (African American) 136.3; Est GFR (Non-African American) 117.6; Magnesium 1.3 mg/dl (1.8-2.4); Potassium 3.3 mmol/L (3.5-5.1)
[2020-04-06] MEDS ORDERED: POTASSIUM CHLORIDE 20 MEQ/15 ML UDC PO STA (05:53)
[2020-04-06] MEDS: MAGNESIUM SULFATE / D5W 1 GM/100 ML BAG IV SCH ×3 (06:30→08:57)
--- NOTE | 2020-04-06 08:06 | Hospitalist Progress Note ---
Date of Service April 06, 2020 Assessment & Plan (1) Acute hemorrhagic pancreatitis: ASSESSMENT AND PLAN: This 39-year-old female with history of alcoholism, presents with abdominal pain and found to be acute hemorrhagic pancreatitis. 1. Acute hemorrhagic pancreatitis, most likely alcohol induced: GI to see today. Hemodynamics are stable currently. Aggressive fluids with IV Ringer lactate 250 mL per hour, Pain control, Coresafe tube ordered and start tube feeds 2. Alcoholism: Monitor for alcohol withdrawal. Banana bag, IV thiamine, IV folic acid in a.m., vitamin B12 and folate levels in a.m. We will place her on gabapentin withdrawal protocol with IV Ativan p.r.n. Close monitoring for withdrawal. Needs counseling. 3. Hypomagnesemia-Replete IV 4. Hypokalemia-Replete IV 5. Tobacco abuse: Needs counseling. Placed on nicotine patch. 6. Deep venous thrombosis prophylaxis: Sequential compression devices. Labs reviewed ROS-No Headache, No Visual Changes, No Nausea, No Vomiting, No Fever, No Chills, No Neck Pain or Stiffness, No Chest Pain, No Palpitations, No SOB, No BARRAZA, No Cough, No Sputum, No Wheezing, + Abdominal Pain, No Diarrhea, No Hematemesis, No Hemoptysis, No Unexpected Weight Loss, No Flank pain, No Melena, No Hematochezia, No Frequency, No Urgency, No Burning, No Hematuria, No Rashes, No Diaphoresis. Appetite is Normal Physical Exam Gen-AAO x 3, NAD, Afebrile Head-NCAT, EOMI, PERRLA, Anicteric Sclera, No Posterior Pharyngeal Erythema Neck-Supple, No JVD, No Thyromegaly, No Masses, No LAD, No Bruits Lungs-Clear to Auscultation Bilaterally, No Rales, No Rhonchi, No Wheezing, No Crepitus Chest-No S4, +S1, +S2, No S3, No Murmurs, No Rubs, No Gallops, No Ectopy Abdomen-Soft, Bowel Sounds Present, Non Tender, Non Distended, No Hepatomegaly, No Splenomegaly, No Palpable Masses, No Rebound, No Rigidity, No Guarding Musculoskeletal-Full Range of Motion Bilaterally, No CVAT Extremities-No Cyanosis, No Clubbing, No Edema Nuero-Cranial Nerves II-XII grossly intact, Motor WNL, DTRs WNL, Strength WNL, Non Focal Psych-Normal Mood Admission and Anticipated Discharge Date Admission Date: April 05, 2020 Anticipated date of discharge: 04/09/20 Results & Data Results & Data ([facility]) Vital Signs (Past 12 Hours) Vital Signs Temp Pulse Pulse Resp BP BP Pulse Ox 04/05/20 22:36 36.7 C 85 20 169/108 H 97 04/05/20 22:34 36.5 C 83 20 162/101 H 96 04/05/20 22:01 80 16 199/105 H 96 04/05/20 22:00 82 16 95 04/05/20 21:32 80 12 155/88 H 94 04/05/20 21:30 80 17 97 04/05/20 21:01 84 21 153/89 H 99 04/05/20 21:00 84 16 99 04/05/20 20:58 77 17 99 04/05/20 20:57 81 20 176/114 H 100 04/05/20 20:31 96 H 18 100 04/05/20 20:30 82 16 98 04/05/20 20:12 88 23 100 04/05/20 20:11 88 20 172/146 H 100 04/05/20 20:08 85 18
[2020-04-06 08:12] LABS: Folate (Folic Acid) > 24.00 ng/ml (>5.38); Vitamin B12 1184 pg/ml (211-911)
[2020-04-06] MEDS ORDERED: MAGNESIUM SULFATE / D5W 1 GM/100 ML BAG IV STA (08:18)
[2020-04-06] MEDS ORDERED: POTASSIUM CHLORIDE 40 MEQ in D5W AND 1/2NSS 1,000 ML/1,000 ML BAG IV SCH (09:00)
[2020-04-06] MEDS: FOLIC ACID 1 MG in SYRINGE 9.8 ML IV SCH (09:00)
[2020-04-06] MEDS: THIAMINE HCL 100 MG in SYRINGE 9 ML IV SCH (09:00)
[2020-04-06] MEDS ORDERED: NICOTINE 21 MG/24 HR TDSY TD SCH (09:00)
[2020-04-06] MEDS: PANTOprazole 40 MG in SYRINGE 0 ML IV SCH (09:01)
--- NOTE | 2020-04-06 10:07 | Gastrointestinal Consultation ---
Date of Consultation April 06, 2020 Assessment & Plan (1) Acute hemorrhagic pancreatitis: Pt is a 39 y/o female w ETOH abuse, presented w abd pain, nausea; noted to have elevated LFTs, and CT abd/pelvis finding of hemorrhagic pancreatitis - Keep NPO - IVF hydration w LR - MRCP today to r/o biliary stone - Symptomatic management w antiemetics and analgesics prn Supervising Physician Co-Signing Physician Notes I saw and evaluated the patient. She has a long history of alcohol abuse and presented to the emergency room for evaluation of discomfort. She was found to have evidence of severe pancreatitis with possible hemorrhagic changes in the pancreatic tail extending into the pelvis. She notes that her pain is slightly improved as compared to baseline. Physical examination No obvious distress, mild epigastric tenderness Patient somewhat tremulous Impression: Patient with a long history of alcohol abuse resulting in acute severe pancreatitis. Given the hemorrhagic changes I worry about the potential for a pseudoaneurysm. As she appears to be had some bleeding I would recommend a referral to a tertiary cancer in case rebleeding occurs as she would need urgent interventional radiology support which is not available locally. Recommendations Continue IV hydration Continue monitoring for alcohol withdrawal symptoms Recommend referral to a tertiary center in case interventional radiology servic es are needed History of Present Illness Reason for Consultation: Hemorrhagic pancreatitis Requesting Physician: Dr. Zak Greenwood Attending Physician: Dr. Morgan Avila History of Present Illness Pt is a 39 y/o female who presented yesterday w c/o diffuse abd pain, nausea. She admit to drink 1 bottle of rum daily, citing lots of stressors in family life. In last month she's been having upper abd pain which is progressively worse and now w radiation towards sides. She denies fever, chills, jaundice, CP, SOB. + nausea but no vomiting, denies any bowel habit changes. Upon eval, labs notable for increased LFTs: Tbili 2.1, AST 164, ALT 71, alk phose 177. Lipase 500 -> 210. Ct abd/pelvis w/o contrast showed: hemorrhagic pancreatitis involving the pancreatic tail and to a lesser extent pancreatic body w/o abscess collection or pseudocyst. + fatty liver. Allergies Allergy/AdvReac Type Severity Reaction Status Date / Time Sulfa (Sulfonamide Allergy Intermediate HIVES A Verified 04/05/20 19:30 Antibiotics) CHILD Home Medications Home Medications Medication Instructions Recorded Confirmed Type No Known Home Medications 04/05/20 04/05/20 History Patient History Medical History No significant past medical history Family History Other Family history of thyroid problem Social History Preferred Language: Faroese Communication Ability: Effective Beliefs That Will Affect Care: None marital status: Current Living Situation: Family current occupational status: employed Feels Safe at Home: Yes Safety Concerns: Feels Safe At This Time Smoking Status: Current every day smoker Tobacco Type: cigarettes ; Cigarettes Per Day: 20 ; Do You Dip or Chew Tobacco: No ; Second Hand Exposure: No ; Tobacco Cessation Education Requested by Patient: No Hx Alcohol Use: Yes Alcohol type: hard liquor Alcohol type Comment: Edy's Wicked Alcohol Intake Frequency: Daily Alcohol Intake Frequency Comment: 4 Edy's Wicked for past 2 years Hx Substance Use: No Review of Systems Review of Systems: All systems reviewed & are unremarkable except as noted in HPI & below Physical Exam Constitutional: WD/WN, vitals as above well groomed, cooperative and comfortable Eyes: PERRL, conjunctivae normal, anicteric sclerae ENMT: external ear and nose normal, oropharynx normal Respiratory: normal respiratory effort, lungs clear to auscultation Cardiovascular: RRR, no murmur, no edema Gastrointestinal (Abdomen): Inspection/Auscultation: + hypoactive bowel sounds Percussion/Palpation: + abdomen tender (epigastric, LUQ, LLQ) and abdomen soft Skin: no rashes, warm and dry no jaundice Neurologic: Motor/Sensory: no asterixis Psychiatric: A+Ox3, euthymic affect Lymphatic: no lymphedema Results & Data ([facility]) Vital Signs (Past 12 Hours) Vital Signs Temp Pulse Resp BP Pulse Ox 04/06/20 08:53 37.1 C 86 20 164/95 H 99 04/05/20 22:36 36.7 C 85 20 169/108 H 97 04/05/20 22:34 36.5 C 83 20 162/101 H 96
[2020-04-06] MEDS: POTASSIUM CHLORIDE / WTR 10 MEQ/100 ML PLCT IV SCH ×4 (10:40→17:54)
--- NOTE | 2020-04-06 12:47 | Magnetic Resonance Report ---
MRCP CLINICAL HISTORY: Vomiting. Pancreatitis. COMPARISON STUDY: Abdominal CT dated 04/05/2020. TECHNIQUE: Abdominal MRCP is performed utilizing various T2-weighted sequences in the axial and coron al planes. IV contrast was not administered for this examination. 3-D reformats are created and asses sed. FINDINGS: The gallbladder is normal in appearance. No gallstones are identified. There is no intra or extrahepa tic biliary ductal dilatation. The common bile duct measures up to 6 mm in diameter. There are no audra ling defects to suggest choledocholithiasis. The pancreatic duct is normal in caliber. The liver is enlarged, measuring 19 cm in length. Hepatic steatosis was shown on the recent CT scan. The unenhanced spleen, right adrenal gland, and kidneys are grossly normal. An 11 mm left adrenal sugar noma is unchanged. The abdominal aorta is normal in caliber. The pancreatic head and neck are normal in appearance. There is inflammatory change and fluid identif ied around the distal body and tail consistent with acute pancreatitis. There is a 4.6 cm complex flu id collection identified in the region of the pancreatic tail corresponding to hemorrhagic pancreatit is when correlated with yesterday's CT scan. There is fluid tracking seen inferiorly within the retro peritoneum and the left paracolic gutter. Trace pleural effusions are noted. The bony structures are intact as visualized. IMPRESSION: 1. Normal MRCP assessment of the biliary tree. No gallstones are identified and there is no intra or extrahepatic biliary ductal dilatation. 2. Findings of hemorrhagic pancreatitis are similar to yesterday's CT scan. 3. Trace pleural effusions. Dictated: 04/06/2020 12:27 PM Transcribed: 04/06/2020 12:42 PM Angelic [id number] Luzmaria Electronically signed by: Seth Hernandez M.D. 04/06/2020 12:45 PM
[2020-04-06 13:04] LABS: Appearance Urine Cloudy (Clear); Bacteria Urine Automated Negative (Negative); Blood Urine Negative (Negative); Color Urine Orange; Epithelial Cell Urine Auto >30 /lpf (0-5); Glucose Urine UA Negative (Negative); Ketones Urine Negative (Negative); Leukocyte Esterase Urine 1+ (Negative); Nitrite Urine Positive (Negative); Protein Urine Trace (Negative); RBC Urine Automated 0-4 /hpf (0-4); Specific Gravity Urine 1.028 (1.000-1.030); Urobilinogen Urine Positive (Negative); pH Urine 6.5 (4.5-7.5)
[2020-04-06 13:09] LABS: Bilirubin Urine 2+ (Negative)
[2020-04-06 13:13] LABS: Ictotest Urine Positive (Negative)
--- NOTE | 2020-04-06 16:12 | Discharge Summary ---
Date of Service April 06, 2020 Admission HPI Per Admitting Provider 39-year-old female with past medical history significant for tobacco abuse, alcoholism, presents with abdominal pain. The patient states since last 1 month, she is having nausea, but today after eating her lunch, she had severe abdominal pain in her epigastric region, now it is going to the left flank region. It was severe, so she came to the ER and found to have acute hemorrhagic pancreatitis. She got significant pain medication, currently pain is better controlled. Hemodynamics are stable. The patient says she drinks about 1 bottle of rum everyday for last 2 years, worried about the withdrawal. Denies any other complaints. Denies any headache, no blurred vision, no earache. Has some allergies. No sore throat, has smoker's cough, no shortness of breath, no chest pain. Normal bowel and bladder movements. No burning micturition, no blood in the stools or black stools. No swelling in the legs, no rash. Lives with her . Ambulates okay. Admission Exam Per Admitting Provider GENERAL: The patient is of moderate build, not in acute distress. VITAL SIGNS: Temperature 36.6, pulse 81, respiratory rate 20, blood pressure 176/114, oxygen 100% on room air. HEENT: No pallor, no icterus. Pupils equal, round, reactive to light. Extraocular muscles intact. Oral mucosa dry. NECK: No JVD. Supple. CARDIOVASCULAR: S1, S2, regular rate and rhythm, no murmur, no gallop. RESPIRATORY SYSTEM: Normal AP diameter. No accessory muscle use. No wheezing, no crackles. ABDOMEN: Soft, bowel sounds sluggish, tenderness in epigastric and left periumbilical region. No rigidity. CENTRAL NERVOUS SYSTEM: Cranial nerves II-XII grossly intact, nonfocal. EXTREMITIES: No edema, no erythema. Principal Diagnosis 1. Acute hemorrhagic pancreatitis, 2. Alcoholism 3. Hypomagnesemia 4. Hypokalemia 5. Tobacco abuse Discharge Exam See below Discharge Data Allergies Allergy/AdvReac Type Severity Reaction Status Date / Time Sulfa (Sulfonamide Allergy Intermediate HIVES A Verified 04/05/20 19:30 Antibiotics) CHILD Consultations 04/05/20 20:49 ED Decision to Admit Stat 04/05/20 22:34 Consult Case Management - Discharge Planning Routine 04/06/20 07:00 Consult Gastroenterology Routine Ordered Studies 04/05/20 18:56 CT abd pelvis wo con Stat 04/06/20 09:04 MR MRCP Stat Current Diagnoses Acute pancreatitis without necrosis or infection, unspecified (04/05/20) Allergies Sulfa (Sulfonamide Antibiotics) Allergy (Intermediate, Verified 04/05/20 19:30) HIVES A CHILD Height/Weight/Isolation Height 5 ft 11 in Weight 87 kg Chemistry 04/05/20 04/06/20 18:54 04:49 Sodium 137 140 Potassium 3.4 L 3.3 L Chloride 99 106 Carbon Dioxide 21 27 Anion Gap 17.0 H 7.0 BUN 4 L 6 L Creatinine 0.64 0.57 L Glucose 124 H 84 Urinalysis 04/06/20 12:15 Urine Color Merrick Urine Appearance Cloudy A Urine pH 6.5 Ur Specific [place] 1.028 Urine Protein Trace H Urine Glucose (UA) Negative Urine Ketones Negative Urine Blood Negative Urine Nitrite Positive A Urine Bilirubin 2+ H Hospital Course (1) Acute hemorrhagic pancreatitis: ASSESSMENT AND PLAN: This 39-year-old female with history of alcoholism, presen ts with abdominal pain and found to be acute hemorrhagic pancreatitis. 1. Acute hemorrhagic pancreatitis, most likely alcohol induced: GI to see today. Hemodynamics are stable currently. Aggressive fluids with IV Ringer lactate 250 mL per hour, Pain control, Coresafe tube ordered and start tube feeds 2. Alcoholism: Monitor for alcohol withdrawal. Banana bag, IV thiamine, IV folic acid in a.m., vitamin B12 and folate levels in a.m. We will place her on gabapentin withdrawal protocol with IV Ativan p.r.n. Close monitoring for withdrawal. Needs counseling. 3. Hypomagnesemia-Replete IV 4. Hypokalemia-Replete IV 5. Tobacco abuse: Needs counseling. Placed on nicotine patch. 6. Deep venous thrombosis prophylaxis: Sequential compression devices. MRCP noted, GI rec transfer to [facility] c C/S to IR in case she develops a Pseudoaneurysm that bleeds. Transfer to [facility] s/o Dr Middleton ROS-No Headache, No Visual Changes, No Nausea, No Vomiting, No Fever, No Chills, No Neck Pain or Stiffness, No Chest Pain, No Palpitations, No SOB, No BARRAZA, No Cough, No Sputum, No Wheezing, + Abdominal Pain, No Diarrhea, No Hematemesis, No Hemoptysis, No Unexpected Weight Loss, No Flank pain, No Melena, No Hematochezia, No Frequency, No Urgency, No Burning, No Hematuria, No Rashes, No Diaphoresis. Appetite is Normal Physical Exam Gen-AAO x 3, NAD, Afebrile Head-NCAT, EOMI, PERRLA, Anicteric Sclera, No Posterior Pharyngeal Erythema Neck-Supple, No JVD, No Thyromegaly, No Masses, No LAD, No Bruits Lungs-Clear to Auscultation Bilaterally, No Rales, No Rhonchi, No Wheezing, No Crepitus Chest-No S4, +S1, +S2, No S3, No Murmurs, No Rubs, No Gallops, No Ectopy Abdomen-Soft, Bowel Sounds Present, Non Tender, Non Distended, No Hepatomegaly, No Splenomegaly, No Palpable Masses, No Rebound, No Rigidity, No Guarding Musculoskeletal-Full Range of Motion Bilaterally, No CVAT Extremities-No Cyanosis, No Clubbing, No Edema Nuero-Cranial Nerves II-XII grossly intact, Motor WNL, DTRs WNL, Strength WNL, Non Focal Psych-Normal Mood Total Time Total Time Spent Total Time Spent (In Minutes): 45 mins Total Time Includes: Examination of the Patient, Discharge Planning, Medication Reconciliation and Communication With Other Providers Discharge Plan Discharge Items Patient Disposition: Transfer Acute Care Hospital Reason For Visit: ABDOMINAL PAIN Discharge Diagnosis: 1. Acute hemorrhagic pancreatitis, 2. Alcoholism 3. Hypomagnesemia 4. Hypokalemia 5. Tobacco abuse Condition on Discharge: Serious Activity: As commented below Activity Comment: Bedrest Lifting: None Bathing: No limitations Exercise/Sports: None Driving/Machine Use: None Weightbearing: Full weightbearing Non-emergency contact: Primary Care Provider and Specialist Call non-emergency contact if: you have any medication questions Follow-up/Referrals: Yosvany Chino [Primary Care Provider] - Diet: Nothing by Mouth Addtl Attending Provider Instructions: Encouraged patient to allow tube feeds Pending Studies at Discharge: No Stand-Alone Forms: My [facility] [place] [employer] Skilled Items Patient informed of condition?: Yes DNR: No Discharge Level of Care: Other Communicable Disease: No Discharge Prognosis: Improving Lines: Peripheral IV Urinary Catheter: No Medications and DC Order Prescriptions: No Action No Known Home Medications RF: 0 Admission Data Admit Date/Time: 04/05/20 21:56 Attending Provider: Zak Greenwood Admit Provider: Crow Acosta Primary Care Provider: Yosvany Chino Other Providers: Charisse Solano ; Polina Alexandra ; Lei Dsouza ; Nimo Carrera ; Jose Veronica ; Morgan Avila ; Viji Salomon ; Alice Yepez ; Luis Garsia ; Abdulaziz Solano ; Sheryl Parker ; Janice Acosta ; Aaliyah Scott ; Lorraine Stokes ; Dorcas Olmos ; Crow Acosta
[2020-04-06] MEDS ORDERED: GABAPENTIN 600 MG TAB PO SCH (18:00)
[2020-04-07] MEDS ORDERED: GABAPENTIN 600 MG TAB PO SCH (22:00)
[2020-04-09] MEDS ORDERED: GABAPENTIN 600 MG TAB PO SCH (10:00)
== END 2020-04-06 19:47 | disposition short-term general hospital (02) | DRG 440 ==
LOC: ED 18:38 → 1E 21:56

== ENCOUNTER 2020-06-09 11:08 | Inpatient (IN) ==
[2020-06-09] MEDS ORDERED: ONDANSETRON INJ 2 MG/ML 2 ML VIAL IV STA (11:31)
[2020-06-09] MEDS ORDERED: THIAMINE HCL 200 MG in SODIUM CHLORIDE 0.9% 50 ML IV STA (11:31)
[2020-06-09] MEDS ORDERED: LORazepam 1 MG/2 ML VIAL IV STA (11:31)
[2020-06-09] MEDS ORDERED: FAMOTIDINE 20MG IV PUSH 20 MG/5 ML SYR IV STA (11:33)
[2020-06-09] MEDS ORDERED: PANTOprazole 40 MG in SYRINGE 0 ML IV ONE (11:33)
[2020-06-09] MEDS ORDERED: SODIUM CHLORIDE 0.9% 1000ML 1,000 ML IV SCH (11:45)
--- NOTE | 2020-06-09 12:00 | Emergency Department Note ---
Impression & Plan Alcoholic pancreatitis, Abdominal pain, Vomiting, UTI (urinary tract infection) ED Provider Note NAME: JOSLYN STINSON AGE: 39 SEX: F : 1980 ARRIVES VIA: Walk-In INFORMANT: Patient, ED PROVIDER(S): Luis Kwan DO CHIEF COMPLAINT: Nausea vomiting HPI: The patient is a 39-year-old female who presented to the emergency department for an evaluation of nausea vomiting. The patient has been experiencing upper abdominal pain abdominal distention nausea and vomiting over the last 4 days. She has a history of chronic alcoholism. She normally drinks liquor. She states that she was in our facility recently with similar complaints and at that time was diagnosed with pancreatitis. She denies having any back pain but does complain of lower chest pain. She describes upper abdominal pain but diffuse abdominal pain as well. Pain is worsened with any movement or vomiting. She denies having any fevers. She is had no dysuria or frequency. The patient states her symptoms are severe at this time. The patient denies having any black or bloody bowel movements. She denies having any hematemesis. ROS: See above HPI for pertinent positives & negatives. A total of 10 systems reviewed and were otherwise negative. PAST MEDICAL HISTORY: See Below PAST SURGICAL HISTORY: See Below FAMILY HISTORY: See Below SOCIAL HISTORY: See Below HOME MEDICATIONS: See Below ALLERGIES: See Below VITALS: See Below PHYSICAL EXAMINATION: GENERAL: The patient is awake and alert. She is very anxious appearing and appears to be in significant pain. EYES: The conjunctivae are clear. The pupils are round and reactive. EARS, NOSE, MOUTH AND THROAT: The nose is without any evidence of any deformity. Mucous membranes are moist. Tongue is midline. NECK: The neck is nontender and supple. RESPIRATORY: Normal respiratory effort is noted there is no evidence of wheezing rhonchi or rales CARDIOVASCULAR: Tachycardic rate with regular rhythm was noted. There was no definite murmur. GASTROINTESTINAL: The abdomen is moderately distended and diffusely tender. There is no specific guarding but pain is very intense at this time. MUSCULOSKELETAL/EXTREMITIES: There is no evidence of gross deformity full range of motion is noted in the hips and shoulders. SKIN: There is no obvious evidence of any rash. There are no petechiae, pallor or cyanosis noted. Clubbing was noted. NEUROLOGIC: Patient is awake alert and oriented x3 strength is symmetric patellar reflexes are 2+ bilaterally MEDICAL DECISION MAKING: The patient is a 39-year-old female who presented to the emergency department for an evaluation of nausea and vomiting. The patient had very severe symptoms of upper abdominal pain. She does have a history of hemorrhagic pancreatitis in the past. She also has a history of chronic alcoholism and stopped drinking alcohol few days ago. The patient's presentation was mixed and feels consistent with her pancreatitis as well as some degree of withdrawal. I discussed the patient's laboratory and radiographic studies with her. She was treated with IV fluids and IV antibiotics in the emergency department. She was also treated with IV pain medication as well as IV antiemetics. She was feeling somewhat improved. [facility] Given the degree of her symptoms as well as her findings on radiographic studies I do feel she may require further inpatient management. She was also given IV proton pump inhibitors and IV H2 blockers. Triage Nursing notes reviewed. Prior medical records reviewed Vital Signs: reviewed and remarkable for elevated blood pressure and tachycardia. Differential diagnosis: Gastroenteritis, food borne illness, infections, appendicitis, diverticulitis, inflammatory bowel disease, obstruction, GI bleed, biliary pathology, volvulus, as well as other pathologies. ER treatment provided: See below Diagnostics interpreted by me: ECG: EKG was obtained in the emergency department. My interpretation is sinus tachycardia at 105 bpm. There is no ectopy. There is no acute ST segment abnormalities. This was compared to a tracing from March [id number]. There is an increased rate however no specific changes were noted otherwise. Cardiac Monitoring: An order was placed for continuous cardiac monitoring. The monitor shows a rate of 115 bpm with sinus tachycardia rhythm. Laboratory studies: As stated above and show below. Imaging studies: See below Consultation(s): I discussed this case with Anette denton [facility] They did request a CT of the abdomen prior to admission but agreed to see the patient for further management. ED COURSE: Procedures: none PDMP:reviewed and no issues Critical Care: None Past Med/Surg History Medical History (Updated 06/09/20 @ 15:47 by JOSE Diaz) Chronic alcoholism Hemorrhagic pancreatitis Surgical History (Updated 06/09/20 @ 15:36 by JOSE Diaz) No significant past surgical history Family History (Updated 06/09/20 @ 15:42 by JOSE Diaz) Father Heart disease Social History Smoking Status: Current every day smoker Tobacco Type: Cigarettes Cigarettes Per Day: 20; Second Hand Exposure: No; Hx Alcohol Use: Yes Alcohol type: hard liquor Alcohol type Comment: 1/5 of rum per day Hx Substance Use: No Preferred Language: Upper Sorbian Communication Ability: Effective Beliefs That Will Affect Care: None marital status: Current Living Situation: Family current occupational status: employed Feels Safe at Home: Yes Allergies Allergies Allergy/AdvReac Type Severity Reaction Status Date / Time Sulfa (Sulfonamide Allergy Intermediate HIVES A Verified 06/09/20 12:56 Antibiotics) CHILD Home Meds Home Medications Medication Instructions Recorded Confirmed folic acid 1 mg PO DAILY 06/09/20 06/09/20 multivitamin 1 tab PO DAILY 06/09/20 06/09/20 pantoprazole 40 mg PO DAILY 06/09/20 06/09/20 thiamine HCl (vitamin B1) 100 mg PO DAILY 06/09/20 06/09/20 Results & Data (ED) Vital Signs Vital Signs - 24 hr 06/09/20 11:10 06/09/20 11:36 06/09/20 13:08 Temperature 36.6 C Temperature Source Oral Pulse Rate 137 H Pulse Rate [Apical] 87 Respiratory Rate 24 18 Blood Pressure 143/107 H Blood Pressure [Left Arm] 164/127 H Blood Pressure Mean 119 Blood Pressure Mean [Left Arm] 139 Pulse Oximetry 99 99 99 Oxygen Delivery Method Room Air Room Air Room Air Sepsis Recent Fever Within 48 Hours No Sepsis New/Unexplained Change in Mental Status No Sepsis Action Taken by Nursing No Action Required Home Medications Current Medication List: was personally reviewed by me Laboratory Data Attestation: I reviewed the patient's lab results. Result diagrams: 06/09/20 12:30 06/09/20 12:30 Lab Results 06/09/20 06/09/20 06/09/20 Range/Units 11:46 11:46 11:46 WBC RBC Hgb Hct MCV MCH MCHC RDW Std Deviation RDW Coeff of Nicolette Plt Count MPV Immature Gran % (Auto) Neut % (Auto) Lymph % (Auto) [place] % (Auto) Eos % (Auto) Baso % (Auto) Neut # (Auto) Lymph # (Auto) [place] # (Auto) Eos # (Auto) Baso # (Auto) Immature Gran # (Auto) Absolute Nucleated RBC Nucleated RBC % (auto) Neutrophils % (Manual) Band Neutrophils % Lymphocytes % (Manual) Prolymphocyte % Reactive Lymphs % (Man) Monocytes % (Manual) Eosinophils % (Manual) Basophils % (Manual) Metamyelocytes % (Man) Myelocytes % (Man) Promyelocytes % (Man) Blast Cells % (Manual) Plasma Cell % (Manual) Other Cells % Nucleated RBC % Neutrophils # (Manual) Band Neutrophils # Total Absolute Neuts Lymphocytes # (Manual) Prolymphocyte # Reactive Lymphs # Total Abs Lymphocytes Monocytes # (Manual) Eosinophils # (Manual) Basophils # (Manual) Metamyelocytes # (Man) Myelocytes # (Manual) Promyelocytes # (Man) Blast Cells # (Man) Plasma Cell # (Manual) Other Cells # Nucleated RBCs # (Man) Hypersegmented Neuts Hyposegmented Neuts Hypogranular Neuts Large Granular Lymphs # Lrg Granular Lymphs Hairy Cells Smudge Cells Toxic Granulation Toxic Vacuolation Dohle Bodies Boyd Rods Platelet Estimate Hypogranular Platelets Clumped Platelets Giant Platelets Platelet Satelliting RBC Morphology Polychromasia Hypochromasia Poikilocytosis Basophilic Stippling Anisocytosis Microcytosis Macrocytosis Spherocytes Pappenheimer Bodies Sickle Cells Target Cells Tear Drop Cells Ovalocytes Stomatocytes Méndez-[place] Bodies Echinocytes Acanthocytes (Spur) Rouleaux RBC Agglutinates Schistocytes RBC Morph Comment Sezary Cell PT Cancelled INR Cancelled APTT Cancelled PTT Ratio Cancelled Sodium Cancelled Potassium Cancelled Chloride Cancelled Carbon Dioxide Cancelled Anion Gap Cancelled BUN Cancelled Creatinine Cancelled Est Cr Clr Drug Dosing Cancelled Est GFR ( Amer) Cancelled Est GFR (Non-Af Amer) Cancelled BUN/Creatinine Ratio Cancelled Glucose Cancelled Calcium Cancelled Phosphorus (2.5-4.9) mg/dl Magnesium (1.8-2.4) mg/dl Total Bilirubin Cancelled AST Cancelled ALT Cancelled Alkaline Phosphatase Cancelled Troponin I Cancelled Total Protein Cancelled Albumin Cancelled Globulin Cancelled Albumin/Globulin Ratio Cancelled Lipase Cancelled HCG, Qual Ethyl Alcohol mg/dL Cancelled 08/29/20 08/29/20 08/29/20 Range/Units 11:46 11:46 12:30 WBC Cancelled 8.93 RBC Cancelled 4.06 L Hgb Cancelled 14.9 Hct Cancelled 43.3 MCV Cancelled 106.7 H MCH Cancelled 36.7 H MCHC Cancelled 34.4 RDW Std Deviation Cancelled 51.6 H RDW Coeff of Nicolette Cancelled 13.0 Plt Count Cancelled 197 MPV Cancelled 11.9 H Immature Gran % (Auto) Cancelled 0.2 Neut % (Auto) Cancelled 79.6 Lymph % (Auto) Cancelled 14.1 [place] % (Auto) Cancelled 5.7 Eos % (Auto) Cancelled 0.2 Baso % (Auto) Cancelled 0.2 Neut # (Auto) Cancelled 7.10 H Lymph # (Auto) Cancelled 1.26 [place] # (Auto) Cancelled 0.51 Eos # (Auto) Cancelled 0.02 Baso # (Auto) Cancelled 0.02 Immature Gran # (Auto) Cancelled 0.02 Absolute Nucleated RBC Cancelled Nucleated RBC % (auto) Cancelled Neutrophils % (Manual) Cancelled Band Neutrophils % Cancelled Lymphocytes % (Manual) Cancelled Prolymphocyte % Cancelled Reactive Lymphs % (Man) Cancelled Monocytes % (Manual) Cancelled Eosinophils % (Manual) Cancelled Basophils % (Manual) Cancelled Metamyelocytes % (Man) Cancelled Myelocytes % (Man) Cancelled Promyelocytes % (Man) Cancelled Blast Cells % (Manual) Cancelled Plasma Cell % (Manual) Cancelled Other Cells % Cancelled Nucleated RBC % Cancelled Neutrophils # (Manual) Cancelled Band Neutrophils # Cancelled Total Absolute Neuts Cancelled Lymphocytes # (Manual) Cancelled Prolymphocyte # Cancelled Reactive Lymphs # Cancelled Total Abs Lymphocytes Cancelled Monocytes # (Manual) Cancelled Eosinophils # (Manual) Cancelled Basophils # (Manual) Cancelled Metamyelocytes # (Man) Cancelled Myelocytes # (Manual) Cancelled Promyelocytes # (Man) Cancelled Blast Cells # (Man) Cancelled Plasma Cell # (Manual) Cancelled Other Cells # Cancelled Nucleated RBCs # (Man) Cancelled Hypersegmented Neuts Cancelled Hyposegmented Neuts Cancelled Hypogranular Neuts Cancelled Large Granular Lymphs Cancelled # Lrg Granular Lymphs Cancelled Hairy Cells Cancelled Smudge Cells Cancelled Toxic Granulation Cancelled Toxic Vacuolation Cancelled Dohle Bodies Cancelled Boyd Rods Cancelled Platelet Estimate Cancelled Hypogranular Platelets Cancelled Clumped Platelets Cancelled Giant Platelets Cancelled Platelet Satelliting Cancelled RBC Morphology Cancelled Polychromasia Cancelled Hypochromasia Cancelled Poikilocytosis Cancelled Basophilic Stippling Cancelled Anisocytosis Cancelled Microcytosis Cancelled Macrocytosis Cancelled Spherocytes Cancelled Pappenheimer Bodies Cancelled Sickle Cells Cancelled Target Cells Cancelled Tear Drop Cells Cancelled Ovalocytes Cancelled Stomatocytes Cancelled Méndez-[place] Bodies Cancelled Echinocytes Cancelled Acanthocytes (Spur) Cancelled Rouleaux Cancelled RBC Agglutinates Cancelled Schistocytes Cancelled RBC Morph Comment Cancelled Sezary Cell Cancelled PT INR APTT PTT Ratio Sodium Potassium Chloride Carbon Dioxide Anion Gap BUN Creatinine Est Cr Clr Drug Dosing Est GFR ( Amer) Est GFR (Non-Af Amer) BUN/Creatinine Ratio Glucose Calcium Phosphorus (2.5-4.9) mg/dl Magnesium (1.8-2.4) mg/dl Total Bilirubin AST ALT Alkaline Phosphatase Troponin I Total Protein Albumin Globulin Albumin/Globulin Ratio Lipase HCG, Qual Cancelled Ethyl Alcohol mg/dL 06/09/20 06/09/20 06/09/20 Range/Units 12:30 12:30 12:30 WBC RBC Hgb Hct MCV MCH MCHC RDW Std Deviation RDW Coeff of Nicolette Plt Count MPV Immature Gran % (Auto) Neut % (Auto) Lymph % (Auto) [place] % (Auto) Eos % (Auto) Baso % (Auto) Neut # (Auto) Lymph # (Auto) [place] # (Auto) Eos # (Auto) Baso # (Auto) Immature Gran # (Auto) Absolute Nucleated RBC Nucleated RBC % (auto) Neutrophils % (Manual) Band Neutrophils % Lymphocytes % (Manual) Prolymphocyte % Reactive Lymphs % (Man) Monocytes % (Manual) Eosinophils % (Manual) Basophils % (Manual) Metamyelocytes % (Man) Myelocytes % (Man) Promyelocytes % (Man) Blast Cells % (Manual) Plasma Cell % (Manual) Other Cells % Nucleated RBC % Neutrophils # (Manual) Band Neutrophils # Total Absolute Neuts Lymphocytes # (Manual) Prolymphocyte # Reactive Lymphs # Total Abs Lymphocytes Monocytes # (Manual) Eosinophils # (Manual) Basophils # (Manual) Metamyelocytes # (Man) Myelocytes # (Manual) Promyelocytes # (Man) Blast Cells # (Man) Plasma Cell # (Manual) Other Cells # Nucleated RBCs # (Man) Hypersegmented Neuts Hyposegmented Neuts Hypogranular Neuts Large Granular Lymphs # Lrg Granular Lymphs Hairy Cells Smudge Cells Toxic Granulation Toxic Vacuolation Dohle Bodies Boyd Rods Platelet Estimate Hypogranular Platelets Clumped Platelets Giant Platelets Platelet Satelliting RBC Morphology Polychromasia Hypochromasia Poikilocytosis Basophilic Stippling Anisocytosis Microcytosis Macrocytosis Spherocytes Pappenheimer Bodies Sickle Cells Target Cells Tear Drop Cells Ovalocytes Stomatocytes Méndez-[place] Bodies Echinocytes Acanthocytes (Spur) Rouleaux RBC Agglutinates Schistocytes RBC Morph Comment Sezary Cell PT 12.8 H INR 1.2 H APTT 25.1 PTT Ratio 0.9 Sodium 136 Potassium 3.2 L Chloride 99 Carbon Dioxide 24 Anion Gap 14.0 H BUN 10 Creatinine 0.65 Est Cr Clr Drug Dosing 131.2 Est GFR ( Amer) 130.5 Est GFR (Non-Af Amer) 112.6 BUN/Creatinine Ratio 14.7 Glucose 105 H Calcium 9.4 Phosphorus 2.4 L (2.5-4.9) mg/dl Magnesium 1.3 L (1.8-2.4) mg/dl Total Bilirubin 2.5 H AST 93 H ALT 58 Alkaline Phosphatase 176 H Troponin I < 0.015 Total Protein 6.9 Albumin 3.1 L Globulin 3.8 Albumin/Globulin Ratio 0.8 L Lipase 5047 H HCG, Qual Ethyl Alcohol mg/dL < 3.0 06/09/20 Range/Units 12:30 WBC RBC Hgb Hct MCV MCH MCHC RDW Std Deviation RDW Coeff of Nicolette Plt Count MPV Immature Gran % (Auto) Neut % (Auto) Lymph % (Auto) [place] % (Auto) Eos % (Auto) Baso % (Auto) Neut # (Auto) Lymph # (Auto) [place] # (Auto) Eos # (Auto) Baso # (Auto) Immature Gran # (Auto) Absolute Nucleated RBC Nucleated RBC % (auto) Neutrophils % (Manual) Band Neutrophils % Lymphocytes % (Manual) Prolymphocyte % Reactive Lymphs % (Man) Monocytes % (Manual) Eosinophils % (Manual) Basophils % (Manual) Metamyelocytes % (Man) Myelocytes % (Man) Promyelocytes % (Man) Blast Cells % (Manual) Plasma Cell % (Manual) Other Cells % Nucleated RBC % Neutrophils # (Manual) Band Neutrophils # Total Absolute Neuts Lymphocytes # (Manual) Prolymphocyte # Reactive Lymphs # Total Abs Lymphocytes Monocytes # (Manual) Eosinophils # (Manual) Basophils # (Manual) Metamyelocytes # (Man) Myelocytes # (Manual) Promyelocytes # (Man) Blast Cells # (Man) Plasma Cell # (Manual) Other Cells # Nucleated RBCs # (Man) Hypersegmented Neuts Hyposegmented Neuts Hypogranular Neuts Large Granular Lymphs # Lrg Granular Lymphs Hairy Cells Smudge Cells Toxic Granulation Toxic Vacuolation Dohle Bodies Boyd Rods Platelet Estimate Hypogranular Platelets Clumped Platelets Giant Platelets Platelet Satelliting RBC Morphology Polychromasia Hypochromasia Poikilocytosis Basophilic Stippling Anisocytosis Microcytosis Macrocytosis Spherocytes Pappenheimer Bodies Sickle Cells Target Cells Tear Drop Cells Ovalocytes Stomatocytes Méndez-[place] Bodies Echinocytes Acanthocytes (Spur) Rouleaux RBC Agglutinates Schistocytes RBC Morph Comment Sezary Cell PT INR APTT PTT Ratio Sodium Potassium Chloride Carbon Dioxide Anion Gap BUN Creatinine Est Cr Clr Drug Dosing Est GFR ( Amer) Est GFR (Non-Af Amer) BUN/Creatinine Ratio Glucose Calcium Phosphorus (2.5-4.9) mg/dl Magnesium (1.8-2.4) mg/dl Total Bilirubin AST ALT Alkaline Phosphatase Troponin I Total Protein Albumin Globulin Albumin/Globulin Ratio Lipase HCG, Qual Negative Ethyl Alcohol mg/dL Administered Medications Discontinued Medications Fentanyl Citrate (Fentanyl Citrate 100 Mcg/2 Ml Vial) 50 mcg IV Q15M PRN PRN Reason: Pain Stop: 06/23/20 12:30 Last Admin: 06/09/20 13:27 Dose: 50 mcg Documented by: [id number] Thiamine HCl 200 mg/ Sodium (Chloride) 52 mls @ 208 mls/hr IV NOW STA Stop: 06/09/20 11:45 Last Infusion: 06/09/20 13:09 Dose: 0 mls/hr Documented by: [id number] Admin: 06/09/20 12:54 Dose: 208 mls/hr Documented by: [id number] Lorazepam (Ativan) 1 mg in 2 mls @ 2 mls/min IV NOW STA Stop: 06/09/20 11:32 Last Admin: 06/09/20 11:51 Dose: 2 mls/min Documented by: [id number] Sodium Chloride (Nss 1000ml) 1,000 mls @ 999 mls/hr IV .Q1H1M ANNA Stop: 06/09/20 12:45 Last Infusion: 06/09/20 13:00 Dose: 0 mls/hr Documented by: [id number] Admin: 06/09/20 11:51 Dose: 999 mls/hr Documented by: [id number] Pantoprazole Sodium 40 mg/ (Syringe) 10 mls @ 5 mls/min IV NOW ONE Stop: 06/09/20 11:34 Last Admin: 06/09/20 12:54 Dose: 5 mls/min Documented by: [id number] Famotidine (Pepcid 20mg Iv Push) 20 mg in 5 mls @ 2.5 mls/min IV NOW STA Stop: 06/09/20 11:34 Last Admin: 06/09/20 11:51 Dose: 2.5 mls/min Documented by: [id number] Ceftriaxone Sodium (Rocephin) 1,000 mg in 50 mls @ 100 mls/hr IV NOW STA Stop: 06/09/20 14:51 Last Admin: 06/09/20 14:59 Dose: 100 mls/hr Documented by: [id number] Ioversol (Ioversol 100ml) 93 ml IV ONCE ONE Stop: 06/09/20 13:48 Last Admin: 06/09/20 13:47 Dose: 93 ml Documented by: [id number] Ondansetron HCl (Ondansetron Inj 2 Mg/Ml 2 Ml Vial) 4 mg IV NOW STA Stop: 06/09/20 11:32 Last Admin: 06/09/20 11:51 Dose: 4 mg Documented by: [id number] Imaging Data Radiologist's Impression: CT SCAN OF THE ABDOMEN AND PELVIS WITH IV CONTRAST CLINICAL HISTORY: Vomiting. Generalized abdominal pain. Pancreatitis. COMPARISON STUDY: Abdominal CT dated 04/05/2020. TECHNIQUE: Following the IV administration of 93 cc of Optiray 320, CT scan of the abdomen and pelvis is performed from the lung bases to the proximal femora. Images are reviewed in the axial, sagittal, and coronal planes. IV contrast was administered without complication. A dose lowering technique was utilized adhering to the principles of ALARA. CT DOSE: 585.26 mGy.cm FINDINGS: Lung bases: The heart is normal in size and without pericardial effusion. The lung bases are clear noting dependent atelectasis. Liver: The contrast-enhanced liver is enlarged, measuring 20.6 cm in length. The liver demonstrates diffusely diminished attenuation consistent with severe hepatic steatosis. There is no intrahepatic biliary ductal dilatation. The hepatic veins and portal veins are patent. Scattered calcified granulomas are observed. Gallbladder: Unremarkable. Spleen: Normal in size and attenuation. Pancreas: The pancreas is edematous and heterogeneous. There is peripancreatic stranding and fluid consistent with acute pancreatitis. There is a 4.1 x 3.2 cm encapsulated fluid collection involving pancreatic tail seen on image #141. No additional fluid collection is identified. The remainder of the gland enhances. The splenic vein is patent. Adrenal glands: Unremarkable. Kidneys: The contrast enhanced kidneys are normal in size and without hydronephrosis. The kidneys enhance symmetrically. Abdominal vasculature: The abdominal aorta is normal in course and caliber noting mild atherosclerotic calcification. Bowel: There is no bowel obstruction. Wall thickening and hyperemia of the duodenum is likely related to adjacent pancreatitis. The appendix is well- visualized and normal. Peritoneum: There is no intraperitoneal free air or abdominal ascites. Lymphadenopathy: None. Pelvic viscera: The bladder wall is thickened and there is pericystic inflammation. The uterus and adnexa are normal as visualized. Small ovarian follicles are noted. Skeletal structures: No lytic or blastic lesions are seen. Sclerotic change is noted in the sacroiliac joints. IMPRESSION: 1. Findings are consistent with acute pancreatitis. 2. A 4.1 cm organized fluid collection is seen in the pancreatic tail, located at the site of previously identified hemorrhagic pancreatitis. This likely r epresents a pseudocyst or liquefied hematoma. 3. The remainder of the pancreatic parenchyma enhances. The splenic vein is patent. 4. Hepatomegaly and severe hepatic steatosis. 5. The bladder wall appears thickened is pericystic inflammation. Correlate clinically and with urinalysis for evidence of cystitis. 6. Additional findings as above. ACT 112: Negative or not required by law. Electronically signed by: Seth Hernandez M.D. 06/09/2020 2:14 PM Dictated: 06/09/20 1403 Transcribed: 06/09/20 1403 SINGLE VIEW CHEST CLINICAL HISTORY: Vomiting. FINDINGS: An AP, portable, upright chest radiograph is compared to study dated 03/11/2019. The examination is mildly degraded by portable technique and patient rotation. The cardiomediastinal silhouette is unremarkable. Numerous blebs are again seen at the lung apices, right greater than left. There is mild bibasilar atelectasis. No airspace consolidation or large pleural effusion is identified. No pneumothorax is seen. The bony thorax is grossly intact. IMPRESSION: No acute cardiopulmonary abnormality. Electronically signed by: Seth Hernandez M.D. 06/09/2020 12:33 PM Dictated: 06/09/20 1232 Transcribed: 06/09/20 1232 KUB CLINICAL HISTORY: Vomiting. FINDINGS: 2 AP supine abdominal radiographs are correlated with abdominal CT dated 04/05/2020. There is a nonobstructed abdominal bowel gas pattern. No evidence of intraperitoneal free air is seen on these supine images. There are no abnormal abdominal calcifications. The bony structures appear intact. IMPRESSION: Nonobstructed bowel gas pattern. Electronically signed by: Seth Hernandez M.D. 06/09/2020 12:34 PM Dictated: 06/09/20 1234 Transcribed: 06/09/20 1234 Prescription Drug Monitoring [place] Drug Monitoring Program reviewed and no issues identified Blood Pressure Blood Pressure Findings: Elevated blood pressure Blood Pressure Disposition: further management by hospitalist Discharge Plan Visit Data Chief Complaint: Abdominal Pain Stated Complaint: ABD PAIN ED Provider: Luis Kwan Discharge Problem: Alcoholic pancreatitis, Abdominal pain, Vomiting, UTI (urinary tract infection) Patient Disposition: Admitted As Inpatient Condition: Good Discharge Instructions Interventions: ED Discharge Assessment Last Done: 06/09/20 14:54
[2020-06-09] MEDS ORDERED: fentaNYL citrate 100 MCG/2 ML VIAL IV PRN (12:31)
--- NOTE | 2020-06-09 12:35 | XRay Report ---
SINGLE VIEW CHEST CLINICAL HISTORY: Vomiting. FINDINGS: An AP, portable, upright chest radiograph is compared to study dated 03/11/2019. The examina tion is mildly degraded by portable technique and patient rotation. The cardiomediastinal silhouette is unremarkable. Numerous blebs are again seen at the lung apices, right greater than left. There is mild bibasilar atelectasis. No airspace consolidation or large pleural effusion is identified. No pne umothorax is seen. The bony thorax is grossly intact. IMPRESSION: No acute cardiopulmonary abnormality. Electronically signed by: Seth Hernandez M.D. 06/09/2020 12:33 PM
--- NOTE | 2020-06-09 12:36 | XRay Report ---
KUB CLINICAL HISTORY: Vomiting. FINDINGS: 2 AP supine abdominal radiographs are correlated with abdominal CT dated 04/05/2020. There i s a nonobstructed abdominal bowel gas pattern. No evidence of intraperitoneal free air is seen on the se supine images. There are no abnormal abdominal calcifications. The bony structures appear intact. IMPRESSION: Nonobstructed bowel gas pattern. Electronically signed by: Seth Hernandez M.D. 06/09/2020 12:34 PM
[2020-06-09 12:45] LABS: Basophils # (auto) 0.02 K/uL (0-0.2); Basophils % (auto) 0.2 %; Eosinophils # (auto) 0.02 K/uL (0-0.5); Eosinophils % (auto) 0.2 %; Hematocrit (blood only) 43.3 % (37-47); Hemoglobin 14.9 g/dL (12.0-16.0); Immature Granulocytes # (auto) 0.02 K/uL (0.00-0.02); Immature Granulocytes % (auto) 0.2 %; Lymphocytes # (auto) 1.26 K/uL (1.2-3.4); Lymphocytes % (auto) 14.1 %; Mean Corpuscular Hemoglobin 36.7 pg (25-34); Mean Corpuscular Hgb Conc 34.4 g/dL (32-36); Mean Corpuscular Volume 106.7 fL (80-100); Mean Platelet Volume 11.9 fL (7.4-10.4); Monocytes # (auto) 0.51 K/uL (0.11-0.59); Monocytes % (auto) 5.7 %; Neutrophils % (auto) 79.6 %; Platelet Count 197 K/uL (130-400); RDW Standard Deviation 51.6 fL (36.4-46.3); Red Blood Count 4.06 M/uL (4.2-5.4); White Blood Count 8.93 K/uL (4.8-10.8)
[2020-06-09 12:56] LABS: INR 1.2 (0.9-1.1); Partial Thromboplastin Ratio 0.9; Partial Thromboplastin Time 25.1 Seconds (21.0-31.0); Prothrombin Time 12.8 Seconds (9.0-12.0)
[2020-06-09 13:04] LABS: Alanine Aminotransferase 58 U/L (12-78); Albumin Level 3.1 gm/dl (3.4-5.0); Aspartate Aminotransferase 93 U/L (15-37); BUN Creatinine Ratio 14.7 (10-20); Blood Urea Nitrogen 10 mg/dl (7-18); Calcium 9.4 mg/dl (8.5-10.1); Carbon Dioxide 24 mmol/L (21-32); Chloride 99 mmol/L (98-107); Creatinine Clr Calc Pharmacy 131.2 ml/min; Est GFR (African American) 130.5; Est GFR (Non-African American) 112.6; Glucose 105 mg/dl (70-99); Potassium 3.2 mmol/L (3.5-5.1); Sodium 136 mmol/L (136-145)
[2020-06-09 13:09] LABS: Albumin Globulin Ratio 0.8 (0.9-2); Alkaline Phosphatase 176 U/L (45-117); Bilirubin,Total 2.5 mg/dl (0.2-1); Globulin 3.8 gm/dl (2.5-4.0); Lipase 5047 U/L (73-393); Phosphorus 2.4 mg/dl (2.5-4.9); Total Protein 6.9 gm/dl (6.4-8.2); Troponin I < 0.015 ng/ml (0-0.045)
[2020-06-09 13:10] LABS: Pregnancy Test, Serum Negative (Negative)
--- NOTE | 2020-06-09 13:28 | Electrocardiogram Report ---
Test Reason : Blood Pressure : / mmHG Vent. Rate : 105 BPM Atrial Rate : 105 BPM P-R Int : 120 ms QRS Dur : 086 ms QT Int : 360 ms P-R-T Axes : 015 052 049 degrees QTc Int : 475 ms Sinus tachycardia Otherwise normal ECG When compared with ECG of 11-MAR-2019 19:42, Vent. rate has increased BY 38 BPM Confirmed by Shant Starkey ([id number]) on 06/09/2020 1:28:10 PM Referred By: REFERRED SELF Confirmed By:Shant Starkey
[2020-06-09] MEDS ORDERED: IOVERSOL 100ml IV ONE (13:47)
--- NOTE | 2020-06-09 14:16 | CT Scan Report ---
CT SCAN OF THE ABDOMEN AND PELVIS WITH IV CONTRAST CLINICAL HISTORY: Vomiting. Generalized abdominal pain. Pancreatitis. COMPARISON STUDY: Abdominal CT dated 04/05/2020. TECHNIQUE: Following the IV administration of 93 cc of Optiray 320, CT scan of the abdomen and pelvi s is performed from the lung bases to the proximal femora. Images are reviewed in the axial, sagittal , and coronal planes. IV contrast was administered without complication. A dose lowering technique wa s utilized adhering to the principles of ALARA. CT DOSE: 585.26 mGy.cm FINDINGS: Lung bases: The heart is normal in size and without pericardial effusion. The lung bases are clear no ting dependent atelectasis. Liver: The contrast-enhanced liver is enlarged, measuring 20.6 cm in length. The liver demonstrates d iffusely diminished attenuation consistent with severe hepatic steatosis. There is no intrahepatic bi liary ductal dilatation. The hepatic veins and portal veins are patent. Scattered calcified granuloma s are observed. Gallbladder: Unremarkable. Spleen: Normal in size and attenuation. Pancreas: The pancreas is edematous and heterogeneous. There is peripancreatic stranding and fluid co nsistent with acute pancreatitis. There is a 4.1 x 3.2 cm encapsulated fluid collection involving robles creatic tail seen on image #141. No additional fluid collection is identified. The remainder of the g land enhances. The splenic vein is patent. Adrenal glands: Unremarkable. Kidneys: The contrast enhanced kidneys are normal in size and without hydronephrosis. The kidneys enh ance symmetrically. Abdominal vasculature: The abdominal aorta is normal in course and caliber noting mild atheroscleroti c calcification. Bowel: There is no bowel obstruction. Wall thickening and hyperemia of the duodenum is likely related to adjacent pancreatitis. The appendix is well-visualized and normal. Peritoneum: There is no intraperitoneal free air or abdominal ascites. Lymphadenopathy: None. Pelvic viscera: The bladder wall is thickened and there is pericystic inflammation. The uterus and ad nexa are normal as visualized. Small ovarian follicles are noted. Skeletal structures: No lytic or blastic lesions are seen. Sclerotic change is noted in the sacroilia c joints. IMPRESSION: 1. Findings are consistent with acute pancreatitis. 2. A 4.1 cm organized fluid collection is seen in the pancreatic tail, located at the site of previou sly identified hemorrhagic pancreatitis. This likely represents a pseudocyst or liquefied hematoma. 3. The remainder of the pancreatic parenchyma enhances. The splenic vein is patent. 4. Hepatomegaly and severe hepatic steatosis. 5. The bladder wall appears thickened is pericystic inflammation. Correlate clinically and with urina lysis for evidence of cystitis. 6. Additional findings as above. ACT 112: Negative or not required by law. Electronically signed by: Seth Hernandez M.D. 06/09/2020 2:14 PM
[2020-06-09] MEDS ORDERED: cefTRIAXone SODIUM 1,000 MG/50 ML BAG IV STA (14:22)
[2020-06-09 15:07] LABS: Magnesium 1.3 mg/dl (1.8-2.4)
[2020-06-09] MEDS ORDERED: GABAPENTIN 1200MG ALCOHOL WITHDRAWAL LOAD PO STA (15:32)
[2020-06-09] MEDS ORDERED: LORazepam 2 MG/4 ML VIAL IV PRN (15:32)
[2020-06-09] MEDS ORDERED: LORazepam 3 MG/6 ML VIAL IV PRN (15:32)
[2020-06-09] MEDS ORDERED: ACETAMINOPHEN 325 MG TAB PO PRN (15:32)
[2020-06-09] MEDS ORDERED: ATIVAN IV ALCOHOL WITHDRAWL IV PRN (15:32)
[2020-06-09] MEDS ORDERED: LORazepam 2 MG/4 ML VIAL ONE (15:39)
[2020-06-09] MEDS ORDERED: cloNIDine HCL 0.1 MG TAB PO PRN ×2 (15:40→15:51)
--- NOTE | 2020-06-09 15:40 | Communication Note ---
Date of Service: June 09, 2020 Attending Addendum: care coordinated with JOSE Garcia please refer to her notes for full details, I agree with her notes patient seen and examined, records reviewed by myself as well on exam, patient seen resting in bed, sitting up states pain started Wed after she drank rum-> central, no radiation states pain is now 2/10 after receiving analgesic at the ER denies active nausea/vomiting, chset pain, dyspnea denies fever/chills at home reports mild tremors, sweats but no hallucinations, confusion no other symptoms VS noted and reviewed General- oriented x 3, not in distress, speaks in sentences with no effort or accessory muscle use Head- atraumatic Eyes- PERRL, EOMI, anicteric ENT- oropharynx clear Neck- supple, no JVD, no adenopathy, no thyromegaly; carotids +2/2, no bruits appreciated Lungs- clear to auscultation bilaterally, no rales/wheezes Heart- normal rate, regular rhythm; no murmur, no gallop, no rub appreciated Abdomen- normal bowel sounds, nondistended, soft, mild epigastric tenderness, no masses or hepatosplenomegaly Extremities- no pretibial edema, no calf tenderness; peripheral pulses intact no tremors noted Neuro- alert, oriented x 3; CN 2-12 grossly intact; motor 5/5 bilaterally;sensation 100% on all extremities; no other gross focal neurologic deficits Skin- warm & dry WBC 8.9 Hg 14.9 Crea 0.65 K 3.2 Ph 2.4 Mg 1.3 Imaging studies reviewed ASSESSMENT AND PLAN ACUTE PANCREATITIS, ALCOHOL INDUCED PANCREATIC PSEUDOCYST 4x3cn history of hemorrhagic pancreatitis, alcohol induced 03/2020 CT a/p> 1. Findings are consistent with acute pancreatitis. 2. A 4.1 cm organized fluid collection is seen in the pancreatic tail, located at the site of previously identified hemorrhagic pancreatitis. This likely represents a pseudocyst or liquefied hematoma. 3. The remainder of the pancreatic parenchyma enhances. The splenic vein is patent. 4. Hepatomegaly and severe hepatic steatosis. 5. The bladder wall appears thickened is pericystic inflammation. Correlate clinically and with urinalysis for evidence of cystitis. 6. Additional findings as above. NPO, IV LR at 250cc/hr, pain meds replace electrolytes GI consulted LOW K, MG, PH, likely from poor oral intake replace , monitor ALCOHOLISM alcohol withdrawal protocol including gabapentin taper, PRN Ativan prefers to discuss Alcohol Cessation with PCP HYPERTENSION likely from Alcohol Withdrawal although BP on the higher side as outpatient per patient Clonidine 0.1mg po q6h PRN syst bp > 160 plan of care discussed with patient in detail all questions answered she is understanding, agreeable, comfortable with plan of care other diagnoses and plan of care as per JOSE Garcia's notes Efrain Campbell MD
[2020-06-09] MEDS: LORazepam 1 MG/2 ML VIAL IV PRN ×2 (15:43→23:27)
[2020-06-09] MEDS: LACTATED RINGER'S 1,000 ML IV SCH ×2 (15:49→23:48)
--- NOTE | 2020-06-09 15:50 | History & Physical Report ---
Date of Service June 09, 2020 Assessment & Plan (1) Alcoholic pancreatitis: -Admit to [facility] with telemetry -Patient presenting from home with reports of abdominal pain, nausea, vomiting. Recent admission to [facility] with subsequent transfer to [facility] for management of hemorrhagic alcoholic pancreatitis. -Patient reports she started drinking shortly after her [place] [facility] and has been slowly increasing her alcohol intake every day. Drinks 1/5 of rum per day. Last drink was 4 days ago. -Lipase 5047, CT ABD/pelvis showing signs of acute pancreatitis and a small fluid collection at site of prior hemorrhagic pancreatitis -LR @ 250 cc/hour, n.p.o., pain and nausea control -Alcohol withdrawal protocol with gabapentin -Daily multivitamin, folic acid, thiamine -GI consult, input appreciated (2) Possible urinary tract infection: -CT ABD/pelvis showing signs of gallbladder wall thickening, possible cystitis -Awaiting UA -Received IV ceftriaxone in the ED -No urinary symptom (3) DVT prophylaxis: -SCDs due to history of hemorrhagic pancreatitis Admission and Anticipated Discharge Date Admission Date: June 09, 2020 History of Present Illness Chief Complaint: Abdominal pain, nausea, vomiting Primary Care Provider: Dr. Collins 39-year-old female with PMH chronic alcoholism, alcoholic hemorrhagic pancreatitis, and other problems to below who presents to the ED for evaluation abdominal pain, nausea, vomiting. Patient admitted to [facility] March 2020 where she was found to have alcoholic hemorrhagic pancreatitis. Patient was subsequently transferred to [facility]. She was treated conservatively, and no intervention was required. Patient reports she has been steadily increasing her alcohol intake since discharge [place] [facility]. Reports that she is back to drinking 1/5 of rum per day. About 5 days ago, patient reports she developed mid abdominal pain. This is been progressively getting worse. She also has been having nausea and vomiting. Describes emesis as bilious in nature. No hematemesis or coffee-ground emesis. Last drink was 4 days ago. Patient reports feeling irritable, diaphoretic, and mild tremors. No seizure-like activity. Patient denies chest pain shortness of breath. No lightheadedness, dizziness, syncopal events. Denies any other recent illnesses, fevers, chills. No urinary symptoms. In the ED, lipase is 5047, K+ 3.2, MG +1.3. CT ABD/pelvis shows signs of acute pancreatitis and a 4.1 cm organized fluid collection is seen in the pancreatic tail, located at the site of previously identified hemorrhagic pancreatitis. Patient is hemodynamically stable. She was given IV ceftriaxone, IV famotidine, IV fentanyl, IV lorazepam, IV Zofran, IV Protonix, IVF, IV thiamine. Allergies Allergy/AdvReac Type Severity Reaction Status Date / Time Sulfa (Sulfonamide Allergy Intermediate HIVES A Verified 06/09/20 12:56 Antibiotics) CHILD Home Medications Home Medications Medication Instructions Recorded Confirmed Type folic acid 1 mg PO DAILY 06/09/20 06/09/20 History multivitamin 1 tab PO DAILY 06/09/20 06/09/20 History pantoprazole 40 mg PO DAILY 06/09/20 06/09/20 History thiamine HCl (vitamin B1) 100 mg PO DAILY 06/09/20 06/09/20 History Past Med/Surg History Medical History Chronic alcoholism Hemorrhagic pancreatitis Surgical History No significant past surgical history Family History (Updated 06/09/20 @ 15:42 by JOSE Diaz) Father Heart disease Social History Smoking Status: Current every day smoker Tobacco Type: Cigarettes Cigarettes Per Day: 20; Second Hand Exposure: No; Hx Alcohol Use: Yes Alcohol type: hard liquor Alcohol type Comment: 1/5 of rum per day Hx Substance Use: No Preferred Language: [place] Islander Communication Ability: Effective Beliefs That Will Affect Care: None marital status: Current Living Situation: Family current occupational status: employed Other Information That Helps Us Care for You: No Feels Safe at Home: Yes Safety Concerns: Feels Safe At This Time Review of Systems Review of Systems: ROS per HPI, all other systems reviewed and negative Physical Exam Physical Exam: Please refer to Dr. Campbell's addendum for physical exam Results & Data Results & Data ([facility]) Vital Signs (Past 12 Hours) Vital Signs Temp Pulse Pulse Pulse Resp BP BP 06/09/20 15:32 37.1 C 100 H 18 175/109 H 06/09/20 13:08 87 18 164/127 H 06/09/20 11:36 06/09/20 11:10 36.6 C 137 H 24 143/107 H Pulse Ox 06/09/20 15:32 99 06/09/20 13:08 99 06/09/20 11:36 99 06/09/20 11:10 99 Laboratory Results Short CBC 06/09/20 06/09/20 Range/Units 11:46 12:30 WBC Cancelled 8.93 Hgb Cancelled 14.9 Hct Cancelled 43.3 Plt Count Cancelled 197 BMP 06/09/20 06/09/20 11:46 12:30 Sodium Cancelled 136 Potassium Cancelled 3.2 L Chloride Cancelled 99 Carbon Dioxide Cancelled 24 BUN Cancelled 10 Creatinine Cancelled 0.65 Glucose Cancelled 105 H Calcium Cancelled 9.4 Cardiac Enzymes 06/09/20 06/09/20 Range/Units 11:46 12:30 Troponin I Cancelled < 0.015 Liver Function 06/09/20 06/09/20 Range/Units 11:46 12:30 Total Bilirubin Cancelled 2.5 H AST Cancelled 93 H ALT Cancelled 58 Alkaline Phosphatase Cancelled 176 H Albumin Cancelled 3.[address] ABD/PELVIS IMPRESSION: 1. Findings are consistent with acute pancreatitis. 2. A 4.1 cm organized fluid collection is seen in the pancreatic tail, located at the site of previously identified hemorrhagic pancreatitis. This likely represents a pseudocyst or liquefied hematoma. 3. The remainder of the pancreatic parenchyma enhances. The splenic vein is patent. 4. Hepatomegaly and severe hepatic steatosis. 5. The bladder wall appears thickened is pericystic inflammation. Correlate clinically and with urinalysis for evidence of cystitis. 6. Additional findings as above. CXR IMPRESSION: No acute cardiopulmonary abnormality. KUB XR IMPRESSION: Nonobstructed bowel gas pattern. Code Status & VTE Plan VTE Prophylaxis Plan VTE Prophylaxis will be ordered: Yes (1) Alcoholic pancreatitis Acute pancreatitis complication: unspecified Chronicity: acute Qualified Code(s): K85.20 - Alcohol induced acute pancreatitis without necrosis or infection
[2020-06-09] MEDS ORDERED: GABAPENTIN 600 MG TAB PO ONE (16:00)
[2020-06-09] MEDS: FOLIC ACID 1 MG TAB PO SCH (16:25)
[2020-06-09] MEDS: THIAMINE HCL 100 MG TAB PO SCH (16:25)
[2020-06-09 16:26] LABS: Appearance Urine Slightly Cloudy (Clear); Blood Urine Trace (Negative); Color Urine Amber; Glucose Urine UA Negative (Negative); Ketones Urine 2+ (Negative); Leukocyte Esterase Urine Negative (Negative); Nitrite Urine Negative (Negative); Urobilinogen Urine Positive (Negative); pH Urine 7.5 (4.5-7.5)
[2020-06-09] MEDS: POTASSIUM CHLORIDE / WTR 10 MEQ/100 ML PLCT IV SCH ×4 (16:27→22:33)
[2020-06-09] MEDS: MAGNESIUM SULFATE / D5W 1 GM/100 ML BAG IV SCH ×2 (16:27→17:25)
[2020-06-09 16:36] LABS: Bilirubin Urine Negative (Negative); Ictotest Urine Negative (Negative); Protein Urine Negative (Negative); Sulfosalicylic Acid Urine Negative (Negative)
[2020-06-09] MEDS: MoRPHine SULFATE 4 MG/ML 1 ML CARP\\VIAL IV PRN (16:40)
[2020-06-09 16:43] LABS: Epithelial Cell Urine >30 /lpf (0-5)
[2020-06-09 16:44] LABS: Bacteria Urine 1+ (Negative); Hyaline Casts Urine 0-5 /lpf (0-5); Mucus Urine Present (None Prsent); WBC Urine 0-5 /hpf (0-5)
[2020-06-09] MEDS: GABAPENTIN 600 MG TAB PO SCH (21:07)
[2020-06-10] MEDS: MoRPHine SULFATE 4 MG/ML 1 ML CARP\\VIAL IV PRN ×3 (01:29→20:45)
[2020-06-10] MEDS ORDERED: Nursing to Pharmacy Communication SCH (01:30)
[2020-06-10] MEDS ORDERED: cloNIDine HCL 0.1 MG TAB PO ONE (01:40)
[2020-06-10] MEDS: MAGNESIUM SULFATE / D5W 1 GM/100 ML BAG IV SCH ×2 (02:53→04:34)
[2020-06-10] MEDS: LACTATED RINGER'S 1,000 ML IV SCH ×4 (04:34→19:10)
[2020-06-10] MEDS: GABAPENTIN 600 MG TAB PO SCH ×3 (05:34→21:18)
[2020-06-10] MEDS: OXYCODONE HCL IR 5 MG TAB (IMMEDIATE RELEASE) PO PRN ×3 (05:34→20:03)
[2020-06-10 06:11] LABS: Alanine Aminotransferase 40 U/L (12-78); Albumin Level 2.4 gm/dl (3.4-5.0); Aspartate Aminotransferase 70 U/L (15-37); BUN Creatinine Ratio 14.5 (10-20); Blood Urea Nitrogen 6 mg/dl (7-18); Calcium 8.1 mg/dl (8.5-10.1); Carbon Dioxide 25 mmol/L (21-32); Chloride 102 mmol/L (98-107); Est GFR (African American) > 150.0; Est GFR (Non-African American) 133.2; Glucose 89 mg/dl (70-99); Magnesium 2.4 mg/dl (1.8-2.4); Potassium 3.2 mmol/L (3.5-5.1); Sodium 136 mmol/L (136-145)
[2020-06-10 06:17] LABS: Albumin Globulin Ratio 0.8 (0.9-2); Alkaline Phosphatase 140 U/L (45-117); Bilirubin,Total 1.3 mg/dl (0.2-1); Lipase 2028 U/L (73-393); Total Protein 5.4 gm/dl (6.4-8.2)
[2020-06-10] MEDS ORDERED: MECLIZINE 12.5 MG TAB PO PRN (08:44)
[2020-06-10] MEDS ORDERED: POTASSIUM CHLORIDE 20 MEQ TABCR PO STA (08:44)
--- NOTE | 2020-06-10 08:56 | Hospitalist Progress Note ---
Date of Service June 10, 2020 Assessment & Plan (1) Alcoholic pancreatitis: -Admitted to [facility] with telemetry -Patient presenting from home with reports of abdominal pain, nausea, vomiting. Recent admission to [facility] with subsequent transfer to [facility] for management of hemorrhagic alcoholic pancreatitis. -Patient reports she started drinking shortly after her discharge from [facility] and has been slowly increasing her alcohol intake every day. Drinks 1/5 of rum per day. Last drink was 4 days ago. -Lipase 5047, CT ABD/pelvis showing signs of acute pancreatitis and a small fluid collection at site of prior hemorrhagic pancreatitis -LR @ 200 cc/hour, n.p.o., pain and nausea control, will now introduce clear liquid diet -Alcohol withdrawal protocol with gabapentin -Daily multivitamin, folic acid, thiamine -GI consult, input appreciated (2) Possible urinary tract infection: -CT ABD/pelvis showing signs of gallbladder wall thickening, possible cystitis -UA suggest. of possible UTI, however patient denies any symptoms -Received IV ceftriaxone in the ED -No urinary symptoms, urine culture pending (3) DVT prophylaxis: -SCDs due to history of hemorrhagic pancreatitis Admission and Anticipated Discharge Date Admission Date: June 09, 2020 Subjective Patient is lying in bed, in no acute distress. However she is little anxious, says she is worried about her family, she has 3 children at home, and her has to drive out of town for work. Otherwise denies any fevers, chills, chest pain, shortness of breath, nausea or vomiting. She still has abdominal pain, she has not eaten anything yet however she is considering clear liquid diet. Review of Systems Review of Systems: All systems reviewed & are unremarkable except as noted in HPI & below Constitutional: no fever and no chills Respiratory: no cough and no dyspnea Cardiovascular: no chest pain and no palpitations Gastrointestinal: no abdominal pain, no nausea and no vomiting Physical Exam Physical Exam: General- young female sitting up in bed, alert and oriented x 3, not in acute distress but seems little anxious Head- normocephalic, atraumatic Eyes- PERRL, EOMI, anicteric ENT- oropharynx clear Neck- supple, no JVD, no adenopathy Lungs- clear to auscultation bilaterally, no rales/rhonchi/wheezes Heart- mildly tachycardic, regular; no murmur Abdomen- normal bowel sounds, nondistended, soft, mild epigastric tenderness Extremities- no pretibial edema, no calf tenderness; peripheral pulses intact, moves extremities spontaneously Neuro- alert and oriented x3, answering questions appropriately, no facial asymmetry, speech fluent, moves extremities spontaneously, no tremors noted Skin- warm & dry Results & Data Results & Data ([facility]) Vital Signs (Past 12 Hours) Vital Signs Temp Pulse Pulse Resp BP Pulse Ox 06/10/20 07:02 36.7 C 99 H 20 126/82 94 06/10/20 05:37 36.8 C 101 H 18 140/93 91 06/10/20 03:43 36.8 C 106 H 20 141/94 H 93 06/10/20 01:34 36.8 C 109 H 18 157/112 H 98 06/10/20 00:33 104 H 06/09/20 23:26 37.0 C 110 H 22 148/104 H 93 06/09/20 23:21 36.7 C 117 H 18 156/109 H 94 Laboratory Results 06/10/20 06/09/20 06/09/20 Range/Units 05:28 16:00 12:30 WBC RBC Hgb Hct MCV MCH MCHC RDW Std Deviation RDW Coeff of Nicolette Plt Count MPV Immature Gran % (Auto) Neut % (Auto) Lymph % (Auto) [place] % (Auto) Eos % (Auto) Baso % (Auto) Neut # (Auto) Lymph # (Auto) [place] # (Auto) Eos # (Auto) Baso # (Auto) Immature Gran # (Auto) Absolute Nucleated RBC Nucleated RBC % (auto) Neutrophils % (Manual) Band Neutrophils % Lymphocytes % (Manual) Prolymphocyte % Reactive Lymphs % (Man) Monocytes % (Manual) Eosinophils % (Manual) Basophils % (Manual) Metamyelocytes % (Man) Myelocytes % (Man) Promyelocytes % (Man) Blast Cells % (Manual) Plasma Cell % (Manual) Other Cells % Nucleated RBC % Neutrophils # (Manual) Band Neutrophils # Total Absolute Neuts Lymphocytes # (Manual) Prolymphocyte # Reactive Lymphs # Total Abs Lymphocytes Monocytes # (Manual) Eosinophils # (Manual) Basophils # (Manual) Metamyelocytes # (Man) Myelocytes # (Manual) Promyelocytes # (Man) Blast Cells # (Man) Plasma Cell # (Manual) Other Cells # Nucleated RBCs # (Man) Hypersegmented Neuts Hyposegmented Neuts Hypogranular Neuts Large Granular Lymphs # Lrg Granular Lymphs Hairy Cells Smudge Cells Toxic Granulation Toxic Vacuolation Dohle Bodies Boyd Rods Platelet Estimate Hypogranular Platelets Clumped Platelets Giant Platelets Platelet Satelliting RBC Morphology Polychromasia Hypochromasia Poikilocytosis Basophilic Stippling Anisocytosis Microcytosis Macrocytosis Spherocytes Pappenheimer Bodies Sickle Cells Target Cells Tear Drop Cells Ovalocytes Stomatocytes Méndez-Houghton Bodies Echinocytes Acanthocytes (Spur) Rouleaux RBC Agglutinates Schistocytes RBC Morph Comment Sezary Cell PT INR APTT PTT Ratio Sodium 136 Potassium 3.2 L Chloride 102 Carbon Dioxide 25 Anion Gap 9.0 BUN 6 L Creatinine 0.39 L Est Cr Clr Drug Dosing 238.0 Est GFR ( Amer) > 150.0 Est GFR (Non-Af Amer) 133.2 BUN/Creatinine Ratio 14.5 Glucose 89 Calcium 8.1 L Phosphorus (2.5-4.9) mg/dl Magnesium 2.4 (1.8-2.4) mg/dl Total Bilirubin 1.3 H AST 70 H ALT 40 Alkaline Phosphatase 140 H Troponin I Total Protein 5.4 L D Albumin 2.4 L Globulin 3.0 Albumin/Globulin Ratio 0.8 L Lipase 2028 H HCG, Qual Negative Urine Color Sandi Urine Appearance Slightly Cloudy (Clear) Urine pH 7.5 (4.5-7.5) Ur Specific [place] 1.010 (1.000-1.030) Urine Protein Negative (Negative) Urine Glucose (UA) Negative (Negative) Urine Ketones 2+ H (Negative) Urine Blood Trace H (Negative) Urine Nitrite Negative (Negative) Urine Bilirubin Negative (Negative) Urine Urobilinogen Positive H (Negative) Ur Leukocyte Esterase Negative (Negative) Urine RBC 5-10 H (0-4) /hpf Urine WBC 0-5 (0-5) /hpf Ur Epithelial Cells >30 H (0-5) /lpf Urine Bacteria 1+ H (Negative) Hyaline Casts 0-5 (0-5) /lpf Urine Mucus Present A (None Prsent) Ethyl Alcohol mg/dL 06/09/20 06/09/20 06/09/20 Range/Units 12:30 12:30 12:30 WBC RBC Hgb Hct MCV MCH MCHC RDW Std Deviation RDW Coeff of Nicolette Plt Count MPV Immature Gran % (Auto) Neut % (Auto) Lymph % (Auto) [place] % (Auto) Eos % (Auto) Baso % (Auto) Neut # (Auto) Lymph # (Auto) [place] # (Auto) Eos # (Auto) Baso # (Auto) Immature Gran # (Auto) Absolute Nucleated RBC Nucleated RBC % (auto) Neutrophils % (Manual) Band Neutrophils % Lymphocytes % (Manual) Prolymphocyte % Reactive Lymphs % (Man) Monocytes % (Manual) Eosinophils % (Manual) Basophils % (Manual) Metamyelocytes % (Man) Myelocytes % (Man) Promyelocytes % (Man) Blast Cells % (Manual) Plasma Cell % (Manual) Other Cells % Nucleated RBC % Neutrophils # (Manual) Band Neutrophils # Total Absolute Neuts Lymphocytes # (Manual) Prolymphocyte # Reactive Lymphs # Total Abs Lymphocytes Monocytes # (Manual) Eosinophils # (Manual) Basophils # (Manual) Metamyelocytes # (Man) Myelocytes # (Manual) Promyelocytes # (Man) Blast Cells # (Man) Plasma Cell # (Manual) Other Cells # Nucleated RBCs # (Man) Hypersegmented Neuts Hyposegmented Neuts Hypogranular Neuts Large Granular Lymphs # Lrg Granular Lymphs Hairy Cells Smudge Cells Toxic Granulation Toxic Vacuolation Dohle Bodies Boyd Rods Platelet Estimate Hypogranular Platelets Clumped Platelets Giant Platelets Platelet Satelliting RBC Morphology Polychromasia Hypochromasia Poikilocytosis Basophilic Stippling Anisocytosis Microcytosis Macrocytosis Spherocytes Pappenheimer Bodies Sickle Cells Target Cells Tear Drop Cells Ovalocytes Stomatocytes Méndez-Houghton Bodies Echinocytes Acanthocytes (Spur) Rouleaux RBC Agglutinates Schistocytes RBC Morph Comment Sezary Cell PT 12.8 H INR 1.2 H APTT 25.1 PTT Ratio 0.9 Sodium 136 Potassium 3.2 L Chloride 99 Carbon Dioxide 24 Anion Gap 14.0 H BUN 10 Creatinine 0.65 Est Cr Clr Drug Dosing 131.2 Est GFR ( Amer) 130.5 Est GFR (Non-Af Amer) 112.6 BUN/Creatinine Ratio 14.7 Glucose 105 H Calcium 9.4 Phosphorus 2.4 L (2.5-4.9) mg/dl Magnesium 1.3 L (1.8-2.4) mg/dl Total Bilirubin 2.5 H AST 93 H ALT 58 Alkaline Phosphatase 176 H Troponin I < 0.015 Total Protein 6.9 Albumin 3.1 L Globulin 3.8 Albumin/Globulin Ratio 0.8 L Lipase 5047 H HCG, Qual Urine Color Urine Appearance (Clear) Urine pH (4.5-7.5) Ur Specific [place] (1.000-1.030) Urine Protein (Negative) Urine Glucose (UA) (Negative) Urine Ketones (Negative) Urine Blood (Negative) Urine Nitrite (Negative) Urine Bilirubin (Negative) Urine Urobilinogen (Negative) Ur Leukocyte Esterase (Negative) Urine RBC (0-4) /hpf Urine WBC (0-5) /hpf Ur Epithelial Cells (0-5) /lpf Urine Bacteria (Negative) Hyaline Casts (0-5) /lpf Urine Mucus (None Prsent) Ethyl Alcohol mg/dL < 3.0 06/09/20 06/09/20 06/09/20 Range/Units 12:30 11:46 11:46 WBC 8.93 Cancelled RBC 4.06 L Cancelled Hgb 14.9 Cancelled Hct 43.3 Cancelled MCV 106.7 H Cancelled MCH 36.7 H Cancelled MCHC 34.4 Cancelled RDW Std Deviation 51.6 H Cancelled RDW Coeff of Nicolette 13.0 Cancelled Plt Count 197 Cancelled MPV 11.9 H Cancelled Immature Gran % (Auto) 0.2 Cancelled Neut % (Auto) 79.6 Cancelled Lymph % (Auto) 14.1 Cancelled [place] % (Auto) 5.7 Cancelled Eos % (Auto) 0.2 Cancelled Baso % (Auto) 0.2 Cancelled Neut # (Auto) 7.10 H Cancelled Lymph # (Auto) 1.26 Cancelled [place] # (Auto) 0.51 Cancelled Eos # (Auto) 0.02 Cancelled Baso # (Auto) 0.02 Cancelled Immature Gran # (Auto) 0.02 Cancelled Absolute Nucleated RBC Cancelled Nucleated RBC % (auto) Cancelled Neutrophils % (Manual) Cancelled Band Neutrophils % Cancelled Lymphocytes % (Manual) Cancelled Prolymphocyte % Cancelled Reactive Lymphs % (Man) Cancelled Monocytes % (Manual) Cancelled Eosinophils % (Manual) Cancelled Basophils % (Manual) Cancelled Metamyelocytes % (Man) Cancelled Myelocytes % (Man) Cancelled Promyelocytes % (Man) Cancelled Blast Cells % (Manual) Cancelled Plasma Cell % (Manual) Cancelled Other Cells % Cancelled Nucleated RBC % Cancelled Neutrophils # (Manual) Cancelled Band Neutrophils # Cancelled Total Absolute Neuts Cancelled Lymphocytes # (Manual) Cancelled Prolymphocyte # Cancelled Reactive Lymphs # Cancelled Total Abs Lymphocytes Cancelled Monocytes # (Manual) Cancelled Eosinophils # (Manual) Cancelled Basophils # (Manual) Cancelled Metamyelocytes # (Man) Cancelled Myelocytes # (Manual) Cancelled Promyelocytes # (Man) Cancelled Blast Cells # (Man) Cancelled Plasma Cell # (Manual) Cancelled Other Cells # Cancelled Nucleated RBCs # (Man) Cancelled Hypersegmented Neuts Cancelled Hyposegmented Neuts Cancelled Hypogranular Neuts Cancelled Large Granular Lymphs Cancelled # Lrg Granular Lymphs Cancelled Hairy Cells Cancelled Smudge Cells Cancelled Toxic Granulation Cancelled Toxic Vacuolation Cancelled Dohle Bodies Cancelled Boyd Rods Cancelled Platelet Estimate Cancelled Hypogranular Platelets Cancelled Clumped Platelets Cancelled Giant Platelets Cancelled Platelet Satelliting Cancelled RBC Morphology Cancelled Polychromasia Cancelled Hypochromasia Cancelled Poikilocytosis Cancelled Basophilic Stippling Cancelled Anisocytosis Cancelled Microcytosis Cancelled Macrocytosis Cancelled Spherocytes Cancelled Pappenheimer Bodies Cancelled Sickle Cells Cancelled Target Cells Cancelled Tear Drop Cells Cancelled Ovalocytes Cancelled Stomatocytes Cancelled Méndez-Houghton Bodies Cancelled Echinocytes Cancelled Acanthocytes (Spur) Cancelled Rouleaux Cancelled RBC Agglutinates Cancelled Schistocytes Cancelled RBC Morph Comment Cancelled Sezary Cell Cancelled PT INR APTT PTT Ratio Sodium Potassium Chloride Carbon Dioxide Anion Gap BUN Creatinine Est Cr Clr Drug Dosing Est GFR ( Amer) Est GFR (Non-Af Amer) BUN/Creatinine Ratio Glucose Calcium Phosphorus (2.5-4.9) mg/dl Magnesium (1.8-2.4) mg/dl Total Bilirubin AST ALT Alkaline Phosphatase Troponin I Total Protein Albumin Globulin Albumin/Globulin Ratio Lipase HCG, Qual Cancelled Urine Color Urine Appearance (Clear) Urine pH (4.5-7.5) Ur Specific [place] (1.000-1.030) Urine Protein (Negative) Urine Glucose (UA) (Negative) Urine Ketones (Negative) Urine Blood (Negative) Urine Nitrite (Negative) Urine Bilirubin (Negative) Urine Urobilinogen (Negative) Ur Leukocyte Esterase (Negative) Urine RBC (0-4) /hpf Urine WBC (0-5) /hpf Ur Epithelial Cells (0-5) /lpf Urine Bacteria (Negative) Hyaline Casts (0-5) /lpf Urine Mucus (None Prsent) Ethyl Alcohol mg/dL 06/09/20 06/09/20 06/09/20 Range/Units 11:46 11:46 11:46 WBC RBC Hgb Hct MCV MCH MCHC RDW Std Deviation RDW Coeff of Nicolette Plt Count MPV Immature Gran % (Auto) Neut % (Auto) Lymph % (Auto) [place] % (Auto) Eos % (Auto) Baso % (Auto) Neut # (Auto) Lymph # (Auto) [place] # (Auto) Eos # (Auto) Baso # (Auto) Immature Gran # (Auto) Absolute Nucleated RBC Nucleated RBC % (auto) Neutrophils % (Manual) Band Neutrophils % Lymphocytes % (Manual) Prolymphocyte % Reactive Lymphs % (Man) Monocytes % (Manual) Eosinophils % (Manual) Basophils % (Manual) Metamyelocytes % (Man) Myelocytes % (Man) Promyelocytes % (Man) Blast Cells % (Manual) Plasma Cell % (Manual) Other Cells % Nucleated RBC % Neutrophils # (Manual) Band Neutrophils # Total Absolute Neuts Lymphocytes # (Manual) Prolymphocyte # Reactive Lymphs # Total Abs Lymphocytes Monocytes # (Manual) Eosinophils # (Manual) Basophils # (Manual) Metamyelocytes # (Man) Myelocytes # (Manual) Promyelocytes # (Man) Blast Cells # (Man) Plasma Cell # (Manual) Other Cells # Nucleated RBCs # (Man) Hypersegmented Neuts Hyposegmented Neuts Hypogranular Neuts Large Granular Lymphs # Lrg Granular Lymphs Hairy Cells Smudge Cells Toxic Granulation Toxic Vacuolation Dohle Bodies Boyd Rods Platelet Estimate Hypogranular Platelets Clumped Platelets Giant Platelets Platelet Satelliting RBC Morphology Polychromasia Hypochromasia Poikilocytosis Basophilic Stippling Anisocytosis Microcytosis Macrocytosis Spherocytes Pappenheimer Bodies Sickle Cells Target Cells Tear Drop Cells Ovalocytes Stomatocytes Méndez-Houghton Bodies Echinocytes Acanthocytes (Spur) Rouleaux RBC Agglutinates Schistocytes RBC Morph Comment Sezary Cell PT Cancelled INR Cancelled APTT Cancelled PTT Ratio Cancelled Sodium Cancelled Potassium Cancelled Chloride Cancelled Carbon Dioxide Cancelled Anion Gap Cancelled BUN Cancelled Creatinine Cancelled Est Cr Clr Drug Dosing Cancelled Est GFR ( Amer) Cancelled Est GFR (Non-Af Amer) Cancelled BUN/Creatinine Ratio Cancelled Glucose Cancelled Calcium Cancelled Phosphorus (2.5-4.9) mg/dl Magnesium (1.8-2.4) mg/dl Total Bilirubin Cancelled AST Cancelled ALT Cancelled Alkaline Phosphatase Cancelled Troponin I Cancelled Total Protein Cancelled Albumin Cancelled Globulin Cancelled Albumin/Globulin Ratio Cancelled Lipase Cancelled HCG, Qual Urine Color Urine Appearance (Clear) Urine pH (4.5-7.5) Ur Specific [place] (1.000-1.030) Urine Protein (Negative) Urine Glucose (UA) (Negative) Urine Ketones (Negative) Urine Blood (Negative) Urine Nitrite (Negative) Urine Bilirubin (Negative) Urine Urobilinogen (Negative) Ur Leukocyte Esterase (Negative) Urine RBC (0-4) /hpf Urine WBC (0-5) /hpf Ur Epithelial Cells (0-5) /lpf Urine Bacteria (Negative) Hyaline Casts (0-5) /lpf Urine Mucus (None Prsent) Ethyl Alcohol mg/dL Cancelled Medications Administered Current Inpatient Medications Acetaminophen (Acetaminophen 325 Mg Tab) 650 mg PO Q4H PRN PRN Reason: pain/fever Stop: 07/09/20 15:31 Clonidine HCl (Clonidine Hcl 0.1 Mg Tab) 0.1 mg PO Q6H PRN PRN Reason: hypertension Stop: 07/09/20 15:39 Last Admin: 06/09/20 15:57 Dose: 0.1 mg Documented by: Folic Acid (Folic Acid 1 Mg Tab) 1 mg PO QAM [facility] Stop: 07/09/20 15:31 Last Admin: 06/09/20 16:25 Dose: 1 mg Documented by: Gabapentin (Gabapentin 600 Mg Tab) 600 mg PO Q24H [facility] Stop: 06/13/20 06:01 Gabapentin (Gabapentin 600 Mg Tab) 600 mg PO Q8H [facility] Stop: 06/11/20 06:01 Gabapentin (Gabapentin 600 Mg Tab) 600 mg PO Q12H [facility] Stop: 06/12/20 06:01 Lorazepam (Ativan) 1 mg in 2 mls @ 2 mls/min IV UD PRN; Protocol PRN Reason: EtOH Withdrawl AWSS Score 6,7 Stop: 07/09/20 15:31 Last Admin: 06/09/20 23:27 Dose: 2 mls/min Documented by: Lorazepam (Ativan) 2 mg in 4 mls @ 4 mls/min IV UD PRN; Protocol PRN Reason: EtOH Withdrawl AWSS Score 8,9 Stop: 07/09/20 15:31 Lorazepam (Ativan) 3 mg in 6 mls @ 4 mls/min IV ONCE PRN; Protocol PRN Reason: EtOH Withdrawl AWSS Score >=10 Stop: 07/09/20 15:31 Lactated Ringer's (Lr) 1,000 mls @ 200 mls/hr IV .Q5H [facility] Stop: 07/09/20 15:31 Last Admin: 06/10/20 04:34 Dose: 200 mls/hr Documented by: Pantoprazole Sodium 40 mg/ (Syringe) 10 mls @ 5 mls/min IV DAILY@1100 [facility] Stop: 07/10/20 10:59 Lorazepam (Lorazepam 0.5 Mg Tab) 0.5 mg PO Q4H PRN PRN Reason: Anxiety Stop: 07/09/20 15:39 Miscellaneous (Ativan Iv Alcohol Withdrawl) 1 ea IV UD PRN; Protocol PRN Reason: EtoH Withdrawal AWSS 6-10+ Stop: 07/09/20 15:31 Morphine Sulfate (Morphine Sulfate 4 Mg/Ml 1 Ml Carp\Vial) 4 mg IV Q4H PRN PRN Reason: Pain Stop: 06/23/20 15:31 Last Admin: 06/10/20 01:29 Dose: 4 mg Documented by: Multivitamins (Multivitamin Tab) 1 tab PO DAILY [facility] Stop: 07/10/20 08:59 Oxycodone HCl (Oxycodone Hcl Ir 5 Mg Tab (Immediate Release)) 5 mg PO Q4H PRN PRN Reason: Pain Stop: 06/24/20 02:44 Last Admin: 06/10/20 05:34 Dose: 5 mg Documented by: Thiamine HCl (Thiamine Hcl 100 Mg Tab) 100 mg PO QAM [facility] Stop: 07/09/20 15:31 Last Admin: 06/09/20 16:25 Dose: 100 mg Documented by: (1) Alcoholic pancreatitis Acute pancreatitis complication: unspecified Chronicity: acute Qualified Code(s): K85.20 - Alcohol induced acute pancreatitis without necrosis or infection
[2020-06-10] MEDS: THIAMINE HCL 100 MG TAB PO SCH (09:10)
[2020-06-10] MEDS: MULTIVITAMIN TAB PO SCH (09:10)
[2020-06-10] MEDS: FOLIC ACID 1 MG TAB PO SCH (09:10)
[2020-06-10] MEDS: LORazepam 1 MG/2 ML VIAL IV PRN ×3 (09:22→18:28)
[2020-06-10] MEDS: PANTOprazole 40 MG in SYRINGE 0 ML IV SCH (11:24)
[2020-06-10] MEDS: LORazepam 0.5 MG TAB PO PRN ×2 (11:51→20:03)
--- NOTE | 2020-06-10 14:53 | Consultation Report ---
DATE OF CONSULTATION: 06/10/2020 GASTROENTEROLOGY CONSULT NOTE REFERRED BY: Dr. Davila. I was asked by Dr Ornelas of the Hospitalist Service to consult on this woman for evaluation of pancreatitis. HISTORY OF PRESENT ILLNESS: The patient is a 39-year-old with a history of pancreatitis and alcohol abuse. She has continued to actively drink and was actively drinking rum when she developed abdominal pain and presented to the medical institution. She also had nausea, vomiting. In March of this year, she had severe hemorrhagic pancreatitis and was transferred to [place]. She has been steadily increasing her alcohol intake since discharge from [place]. She is unclear about the date of her last drink, but it may have been 2-3 days prior to admission. Since admission, she has received hydration and pain management and states she is feeling better. She has been a little shaky since her admission by her report. PAST MEDICAL HISTORY: I reviewed her medical records and her past medical history and her past medical history is significant for what is already mentioned. SOCIAL HISTORY: Significant for alcoholism and alcohol abuse. FAMILY HISTORY: Negative for gastrointestinal disease. OUTPATIENT MEDICATIONS: Include folic acid, pantoprazole, multivitamins and B1 vitamin. ALLERGIES: SHE STATES SHE IS ALLERGIC TO SULFA ANTIBIOTICS. REVIEW OF SYSTEMS: As above, otherwise she denies any recent change in vision or hearing. She has had no hair loss. She denies any easy bruising. She has had no productive cough or shortness of breath. She denies any active chest pain. She denies joint swelling. She denies dysuria. She denies any abnormal uterine bleeding. She denies any heat or cold intolerance. She has had no seizures. She denies any recent change in mood. PHYSICAL EXAMINATION: GENERAL: Reveals a woman in no distress. VITAL SIGNS: Her most recent blood pressure is 128/85, pulse is 100, temperature is 36.7. SKIN: Anicteric. EYES: Show anicteric sclerae. MOUTH: Clear of lesions with moist mucous membranes. NECK: Supple. CHEST: Clear. HEART: Regular rate and rhythm. ABDOMEN: Soft with some tenderness to deep palpation, but no rebound and she has active bowel sounds. EXTREMITIES: Warm with good distal pulses. NEUROLOGIC: She is grossly intact and alert and oriented x3. She does appear slightly jittery. LABORATORY DATA: Show a white blood cell count of 8.9, hemoglobin of 14.9, platelet count of 197,000. Liver enzymes show a total bilirubin of 1.3, AST of 70, ALT of 40, alkaline phosphatase of 140 and lipase on admission was 5000 and today it is 2000. CT of the abdomen revealed a 4 cm organized fluid collection in the pancreatic tail at the site of previous hemorrhagic pancreatitis, most likely representing either liquified hematoma or pseudocyst by report. Splenic vein is patent. There is also severe hepatic steatosis. IMPRESSION: A 39-year-old woman with alcoholic pancreatitis. Mainstay of treatment is aggressive hydration as she is getting. She should be kept n.p.o. and it would be good to see her hemoglobin trend downward a little bit with aggressive hydration as a sign of adequate fluid resuscitation. I am concerned about early withdrawal signs given her tachycardia and jitteriness, so I would recommend an alcohol withdrawal protocol as per the Hospitalist Service and follow her clinically. At this point, I do not think she requires antibiotics.
[2020-06-10 18:59] LABS: BUN Creatinine Ratio 11.3 (10-20); Calcium 8.6 mg/dl (8.5-10.1); Creatinine Clr Calc Pharmacy 206.3 ml/min; Est GFR (African American) 147.3; Est GFR (Non-African American) 127.1; Potassium 3.8 mmol/L (3.5-5.1)
[2020-06-11] MEDS: LACTATED RINGER'S 1,000 ML IV SCH ×4 (00:15→14:45)
[2020-06-11] MEDS: OXYCODONE HCL IR 5 MG TAB (IMMEDIATE RELEASE) PO PRN ×3 (02:56→20:11)
[2020-06-11] MEDS: LORazepam 0.5 MG TAB PO PRN ×3 (02:56→15:26)
[2020-06-11] MEDS: MoRPHine SULFATE 4 MG/ML 1 ML CARP\\VIAL IV PRN ×3 (04:39→23:33)
[2020-06-11] MEDS: GABAPENTIN 600 MG TAB PO SCH (06:29)
[2020-06-11 06:30] LABS: Hematocrit (blood only) 33.7 % (37-47); Hemoglobin 11.3 g/dL (12.0-16.0); Mean Corpuscular Hemoglobin 36.6 pg (25-34); Mean Corpuscular Hgb Conc 33.5 g/dL (32-36); Mean Corpuscular Volume 109.1 fL (80-100); Mean Platelet Volume 11.8 fL (7.4-10.4); Platelet Count 146 K/uL (130-400); RDW Coefficient of Variation 13.3 % (11.5-14.5); RDW Standard Deviation 52.6 fL (36.4-46.3); Red Blood Count 3.09 M/uL (4.2-5.4)
[2020-06-11] MEDS: LORazepam 1 MG/2 ML VIAL IV PRN ×2 (06:40→20:11)
[2020-06-11 06:49] LABS: BUN Creatinine Ratio 8.8 (10-20); Calcium 8.6 mg/dl (8.5-10.1); Creatinine Clr Calc Pharmacy 214.2 ml/min; Est GFR (African American) 148.4; Est GFR (Non-African American) 128.1; Phosphorus 2.1 mg/dl (2.5-4.9); Potassium 3.5 mmol/L (3.5-5.1)
[2020-06-11] MEDS: THIAMINE HCL 100 MG TAB PO SCH (08:12)
[2020-06-11] MEDS: FOLIC ACID 1 MG TAB PO SCH (08:12)
[2020-06-11] MEDS: MULTIVITAMIN TAB PO SCH (08:12)
[2020-06-11] MEDS: PANTOprazole 40 MG in SYRINGE 0 ML IV SCH (11:28)
--- NOTE | 2020-06-11 12:59 | Gastroenterology Progress Note ---
Date of Service June 11, 2020 Assessment & Plan (1) Alcoholic pancreatitis: Ms. Barclay is a 39 yr old female with alcoholic pancreatitis, she is clinically improving with IV fluids, limiting diet to clear liquids. Most importantly, to prevent complications, it is most important that she abstain from alcohol in the future. Present on Admission?: Yes Admission and Anticipated Discharge Date Admission Date: June 09, 2020 Supervising Physician Co-Signing Physician Notes I saw and evaluated the patient this afternoon. Unfortunatly she continues to drink alchohol which is certainly contributing to her persistent symtoms. It appears that the CT from over the weekend shows no worrisome changes. Recomendations Repeat CT in 3 months Patient needs to stop drinking alohcol watch for signs of withdrawl Subjective Ms. Khushbu Barclay is a 39 yr old female admitted with ETOH pancreatitis. This morning was sleeping comfortably. We awakened her for exam. Lipase and LFTs improving. Tolerating a clear liquid diet well. Review of Systems Review of Systems: ROS: Gen: Denies weakness, fevers, weight loss Eyes: No eye redness, or pain, no recent vision changes Resp: No SOB, no cough Cardio: No palpitations/irregular beats, no chest pain GI: As per HPI, otherwise (-) : Denies pain on urination Skin: No jaundice, itching or new rashes Eyes: No eye redness, no impaired vision or double vision Physical Exam Constitutional: WD/WN, vitals as above Eyes: PERRL, conjunctivae normal, anicteric sclerae ENMT: external ear and nose normal, oropharynx normal Neck: trachea midline, no thyromegaly Respiratory: normal respiratory effort, lungs clear to auscultation except few crackles right base Cardiovascular: RRR, no murmur, no edema Gastrointestinal (Abdomen): Inspection/Auscultation: abdomen normal to inspection and + hypoactive bowel sounds; abdomen not distended Percussion/Palpation: + abdomen tender (moderately tender on deep palpation of epigastric area) and abdomen soft Skin: no rashes, warm and dry Neurologic: PERRL, EOMI, accommodation nl, no face palsy, no dysarthria Psychiatric: A+Ox3, euthymic affect Lymphatic: no cervical or axillary lymphadenopathy Results & Data ([facility]) Vital Signs (Past 12 Hours) Vital Signs Temp Pulse Pulse Pulse Resp BP Pulse Ox 08/31/20 11:57 36.8 C 87 18 126/85 94 06/11/20 07:27 36.8 C 101 H 18 142/95 H 94 06/11/20 07:21 92 H 06/11/20 03:59 36.7 C 100 H 20 139/101 H 92 Laboratory Results Hb 14->11. ALT 58->40, AST 93->70, Lipase 5048->[address] abd/pelvis: A 4.1 cm organized fluid collection is seen in the pancreatic tail, located at the site of previously identified hemorrhagic pancreatitis. This likely represents a pseudocyst or liquefied hematoma. (1) Alcoholic pancreatitis Acute pancreatitis complication: unspecified Chronicity: acute Qualified Code(s): K85.20 - Alcohol induced acute pancreatitis without necrosis or infection
[2020-06-11] MEDS ORDERED: POTASSIUM PHOS 3 MMOL/1 ML INFUSION IV STA (14:48)
--- NOTE | 2020-06-11 14:48 | Hospitalist Progress Note ---
Date of Service June 11, 2020 Assessment & Plan (1) Alcoholic pancreatitis: -Patient presenting from home with reports of abdominal pain, nausea, vomiting. Recent admission to [facility] with subsequent transfer to [facility] for management of hemorrhagic alcoholic pancreatitis. -Patient reports she started drinking shortly after her discharge from [facility] and has been slowly increasing her alcohol intake every day. Last drink was 4 days prior to admission -Lipase 5047, CT ABD/pelvis showing signs of acute pancreatitis and a small fluid collection at site of prior hemorrhagic pancreatitis -LR @ 200 cc/hour, n.p.o., pain and nausea control, will now introduce clear liquid diet -Alcohol withdrawal protocol with gabapentin -Appreciate GI input and recommendation -Has been tolerating clears orally -We will continue current management Alcoholism Has been on withdrawal medication protocol Minimal tremors involving the outstretched wrist hand Strongly advised to quit drinking Continue supportive care (2) Possible urinary tract infection: -CT ABD/pelvis showing signs of gallbladder wall thickening, possible cystitis -UA suggest. of possible UTI, however patient denies any symptoms -Received IV ceftriaxone in the ED -Urine culture is negative -Antibiotic has been discontinued (3) DVT prophylaxis: -SCDs due to history of hemorrhagic pancreatitis Admission and Anticipated Discharge Date Admission Date: June 09, 2020 Subjective 06/11/2020 The patient was seen and examined in medical telemetry unit She has been complaining of abdominal pain but seems to be better than yesterday She has been tolerating clears orally Denies any shortness of breath, any nausea and/or vomiting Review of Systems Review of Systems: All systems reviewed and are unremarkable except as noted below Gastrointestinal: + abdominal pain and + bloating; no nausea and no vomiting Physical Exam Physical Exam: Lying in bed with some distress Constitutional: well developed, well nourished, + acute distress (Due to abdominal discomfort and pain), + ill appearing and + obese Eyes: PERRL, conjunctivae normal, anicteric sclerae ENMT: external ear and nose normal, oropharynx normal Neck: trachea midline, no thyromegaly Respiratory: normal respiratory effort; no respiratory distress Auscultation: lungs clear to auscultation bilaterally Cardiovascular: Rate/Rhythm: regular rate and regular rhythm Heart Sounds: no murmur Gastrointestinal (Abdomen): Inspection/Auscultation: + abdomen distended and normal bowel sounds Percussion/Palpation: + abdomen tender (To palpate all over) and abdomen soft; no guarding Musculoskeletal: No acute arthritis involving any joints Neurologic: moves all extremities; no focal motor deficits Minimal tremors involving the outstretched hands Psychiatric: Hallucinations: + visual hallucinations Results & Data Results & Data ([facility]) Vital Signs (Past 12 Hours) Vital Signs Temp Pulse Pulse Pulse Resp BP Pulse Ox 06/11/20 11:57 36.8 C 87 18 126/85 94 06/11/20 07:27 36.8 C 101 H 18 142/95 H 94 06/11/20 07:21 92 H 06/11/20 03:59 36.7 C 100 H 20 139/101 H 92 Laboratory Results Short CBC 06/11/20 Range/Units 05:58 WBC 5.90 (4.8-10.8) K/uL Hgb 11.3 L D (12.0-16.0) g/dL Hct 33.7 L (37-47) % Plt Count 146 (130-400) K/uL BMP 06/10/20 06/11/20 17:33 05:58 Sodium 137 140 Potassium 3.8 D 3.5 Chloride 104 107 Carbon Dioxide 23 25 BUN 5 L 4 L Creatinine 0.45 L 0.44 L Glucose 88 89 Calcium 8.6 8.6 Medications Administered Current Inpatient Medications Acetaminophen (Acetaminophen 325 Mg Tab) 650 mg PO Q4H PRN PRN Reason: pain/fever Stop: 07/09/20 15:31 Clonidine HCl (Clonidine Hcl 0.1 Mg Tab) 0.1 mg PO Q6H PRN PRN Reason: hypertension Stop: 07/09/20 15:39 Last Admin: 06/09/20 15:57 Dose: 0.1 mg Documented by: Folic Acid (Folic Acid 1 Mg Tab) 1 mg PO QAM ANNA Stop: 07/09/20 15:31 Last Admin: 06/11/20 08:12 Dose: 1 mg Documented by: Gabapentin (Gabapentin 600 Mg Tab) 600 mg PO Q24H ANNA Stop: 06/13/20 06:01 Gabapentin (Gabapentin 600 Mg Tab) 600 mg PO Q12H [facility] Stop: 06/12/20 06:01 Lorazepam (Ativan) 1 mg in 2 mls @ 2 mls/min IV UD PRN; Protocol PRN Reason: EtOH Withdrawl AWSS Score 6,7 Stop: 07/09/20 15:31 Last Admin: 06/11/20 06:40 Dose: 1 mls/min Documented by: Lorazepam (Ativan) 2 mg in 4 mls @ 4 mls/min IV UD PRN; Protocol PRN Reason: EtOH Withdrawl AWSS Score 8,9 Stop: 07/09/20 15:31 Lorazepam (Ativan) 3 mg in 6 mls @ 4 mls/min IV ONCE PRN; Protocol PRN Reason: EtOH Withdrawl AWSS Score >=10 Stop: 07/09/20 15:31 Lactated Ringer's (Lr) 1,000 mls @ 200 mls/hr IV .Q5H ANNA Stop: 07/09/20 15:31 Last Admin: 06/11/20 09:25 Dose: 200 mls/hr Documented by: Pantoprazole Sodium 40 mg/ (Syringe) 10 mls @ 5 mls/min IV DAILY@1100 ANNA Stop: 07/10/20 10:59 Last Admin: 06/11/20 11:28 Dose: 5 mls/min Documented by: Lorazepam (Lorazepam 0.5 Mg Tab) 0.5 mg PO Q4H PRN PRN Reason: Anxiety Stop: 07/09/20 15:39 Last Admin: 06/11/20 09:25 Dose: 0.5 mg Documented by: Miscellaneous (Ativan Iv Alcohol Withdrawl) 1 ea IV UD PRN; Protocol PRN Reason: EtoH Withdrawal AWSS 6-10+ Stop: 07/09/20 15:31 Morphine Sulfate (Morphine Sulfate 4 Mg/Ml 1 Ml Carp\Vial) 4 mg IV Q4H PRN PRN Reason: Pain Stop: 06/23/20 15:31 Last Admin: 06/11/20 04:39 Dose: 4 mg Documented by: Multivitamins (Multivitamin Tab) 1 tab PO DAILY ANNA Stop: 07/10/20 08:59 Last Admin: 06/11/20 08:12 Dose: 1 tab Documented by: Oxycodone HCl (Oxycodone Hcl Ir 5 Mg Tab (Immediate Release)) 5 mg PO Q4H PRN PRN Reason: Pain Stop: 06/24/20 02:44 Last Admin: 06/11/20 02:56 Dose: 5 mg Documented by: Thiamine HCl (Thiamine Hcl 100 Mg Tab) 100 mg PO QAM [facility] Stop: 07/09/20 15:31 Last Admin: 06/11/20 08:12 Dose: 100 mg Documented by: (1) Alcoholic pancreatitis Acute pancreatitis complication: unspecified Chronicity: acute Qualified Code(s): K85.20 - Alcohol induced acute pancreatitis without necrosis or infection
[2020-06-11] MEDS ORDERED: POTASSIUM PHOSPHATE 24 MMOL in SODIUM CHLORIDE 0.9% 500 ML IV ONE (15:00)
[2020-06-11] MEDS ORDERED: GABAPENTIN 600 MG TAB PO SCH (18:00)
[2020-06-12] MEDS ORDERED: NICOTINE POLACRILEX 2 MG GUM MT PRN (00:41)
--- NOTE | 2020-06-12 01:02 | Communication Note ---
Date of Service: June 12, 2020 Notified by RN of patient intent to leave hospital AMA. Patient not willing to wait for morning provider. Patient noted to be coherent during my encounter with her although she is not able to state correct year. As per patient, her will pick her up from the hospital. I called patient's (Mr. Timothy Hubbard) over the phone to update him of developments. Patient stated concerns about patient's mentation when he spoke to her on the phone earlier. He denied talking to patient about picking her up from the hospital. Patient stated that he was not comfortable taking patient home and would like her stay in the hospital. I relayed 's concerns to the patient at bedside. Patient insistent on leaving, stating she would just go to her [id number]'s house. I told her I could not allow her to leave for now given concerns stated by her . I did tell her that if she insisted on leaving, I will be compelled to order necessary restraints as needed given safety concerns. Patient said she would call the police. Nursing clinical coordinator requested me to consult psychiatry liaison nurse to evaluate patient. I gave situation background to Mr. Dhruv Watters RN (psych liaison) and provided him w/ patient 's contact number for him to corroborate story. Mr. Watters later informed me that patient's found patient's mentation to be better after a more recent phone conversation. Patient agreeable to picking up patient from the hospital. I called Mr. Hubbard over the phone to summarize events, subsequently confirming his intent to take patient home. Mr. Hubbard (a culinary professional) requests for phone call from AM provider or hospital human resources administrator for dietary advice for patient. ([phone]) Patient intent on departing hospital AGAINST MEDICAL ADVICE despite explanations provided and citation of risks/possible consequences arising from decision to leave AMA which includes as an extreme circumstance. Patient signed AMA papers in my presence at bedside.
--- NOTE | 2020-06-12 08:00 | Discharge Summary ---
Date of Service June 12, 2020 Admission HPI Per Admitting Provider 39-year-old female with PMH chronic alcoholism, alcoholic hemorrhagic pancreatitis, and other problems to below who presents to the ED for evaluation abdominal pain, nausea, vomiting. Patient admitted to [facility] March 2020 where she was found to have alcoholic hemorrhagic pancreatitis. Patient was subsequently transferred to [facility]. She was treated conservatively, and no intervention was required. Patient reports she has been steadily increasing her alcohol intake since discharge from [facility] [place] [facility]. Reports that she is back to drinking 1/5 of rum per day. About 5 days ago, patient reports she developed mid abdo sharon pain. This is been progressively getting worse. She also has been having nausea and vomiting. Describes emesis as bilious in nature. No hematemesis or coffee-ground emesis. Last drink was 4 days ago. Patient reports feeling irritable, diaphoretic, and mild tremors. No seizure-like activity. Patient denies chest pain shortness of breath. No lightheadedness, dizziness, syncopal events. Denies any other recent illnesses, fevers, chills. No urinary symptoms. In the ED, lipase is 5047, K+ 3.2, MG +1.3. CT ABD/pelvis shows signs of acute pancreatitis and a 4.1 cm organized fluid collection is seen in the pancreatic tail, located at the site of previously identified hemorrhagic pancreatitis. Patient is hemodynamically stable. She was given IV ceftriaxone, IV famotidine, IV fentanyl, IV lorazepam, IV Zofran, IV Protonix, IVF, IV thiamine. Principal Diagnosis Alcoholic pancreatitis, chronic alcoholism Discharge Exam Constitutional well developed, well nourished, + acute distress (Due to abdominal discomfort and pain), + ill appearing and + obese Eyes PERRL, conjunctivae normal, anicteric sclerae ENMT external ear and nose normal, oropharynx normal Neck trachea midline, no thyromegaly Respiratory normal respiratory effort; no respiratory distress Auscultation: lungs clear to auscultation bilaterally Cardiovascular Rate/Rhythm: regular rate and regular rhythm Heart Sounds: no murmur Gastrointestinal (Abdomen) Inspection/Auscultation: + abdomen distended and normal bowel sounds Percussion/Palpation: + abdomen tender (To palpate all over) and abdomen soft; no guarding Neurologic moves all extremities; no focal motor deficits Psychiatric Hallucinations: + visual hallucinations Discharge Data Allergies Allergy/AdvReac Type Severity Reaction Status Date / Time Sulfa (Sulfonamide Allergy Intermediate HIVES A Verified 06/09/20 12:56 Antibiotics) CHILD Consultations 06/09/20 13:38 ED Decision to Admit Stat 06/09/20 15:32 Consult Gastroenterology Routine Ordered Studies 06/09/20 13:45 CT abd pelvis IV con only Stat Hospital Course (1) Alcoholic pancreatitis: -Patient presenting from home with reports of abdominal pain, nausea, vomiting. Recent admission to [facility] with subsequent transfer to [facility] for management of hemorrhagic alcoholic pancreatitis. -Patient reports she started drinking shortly after her discharge from [facility] [place] and has been slowly increasing her alcohol intake every day. Last drink was 4 days prior to admission -Lipase 5047, CT ABD/pelvis showing signs of acute pancreatitis and a small fluid collection at site of prior hemorrhagic pancreatitis -LR @ 200 cc/hour, n.p.o., pain and nausea control, will now introduce clear liquid diet -Alcohol withdrawal protocol with gabapentin -Appreciate GI input and recommendation -Has been tolerating clears orally -We will continue current management Alcoholism Has been on withdrawal medication protocol Minimal tremors involving the outstretched wrist hand Strongly advised to quit drinking Continue supportive care (2) Possible urinary tract infection: -CT ABD/pelvis showing signs of gallbladder wall thickening, possible cystitis -UA suggest. of possible UTI, however patient denies any symptoms -Received IV ceftriaxone in the ED -Urine culture is negative -Antibiotic has been discontinued (3) DVT prophylaxis: -SCDs due to history of hemorrhagic pancreatitis Total Time Total Time Spent Total Time Spent (In Minutes): 0 minutes Discharge Plan Discharge Items Patient Disposition: Against Medical Advice Reason For Visit: ALCOHOL PANCREATITIS Discharge Diagnosis: Alcoholic pancreatitis, chronic alcoholism Condition on Discharge: Good Activity: Resume your previous activity Non-emergency contact: Primary Care Provider Call non-emergency contact if: you have any medication questions and your symptoms worsen Follow-up/Referrals: Lamont Collins MD [Primary Care Provider] - Diet: Low Fat Addtl Attending Provider Instructions: Signed out AGAINST MEDICAL ADVICE Pending Studies at Discharge: No Stand-Alone Forms: My [employer], Smoking Cessation Medications and DC Order Prescriptions: Continued multivitamin Tablet 1 tab PO DAILY RF: 0 pantoprazole 40 mg tablet,delayed release (DR/EC) 40 mg PO DAILY RF: 0 folic acid 1 mg tablet 1 mg PO DAILY RF: 0 thiamine HCl (vitamin B1) 100 mg Tablet 100 mg PO DAILY RF: 0 Discharge Orders: Left Against Medical Advice (Routine); Ordered 06/12/20 Ordered By: Varinder Schmitz Admission Data Admit Date/Time: 06/09/20 14:23 Attending Provider: Yossi Almazan Admit Provider: Efrain Campbell Primary Care Provider: Lamont Collins Other Providers: Efrain Campbell ; Dorcas Olmos ; Tino Davila Other Interventions: Discharge Summary Assessment (RN) Last Done: 06/12/20 01:41
[2020-06-13] MEDS ORDERED: GABAPENTIN 600 MG TAB PO SCH (06:00)
--- NOTE | 2020-06-15 14:23 | Coding Query ---
CODING QUERY To promote full compliance with coding requirements relating to patient care, provider participation is requested in all cases of invoice coder uncertainty. Please assist us with the question(s) below: Coding Question(s): Chronic alcoholism is documented along with treatment of "withdrawal medication protocol" and some withdrawal symptoms of tremors. Please indicate below the patient's alcoholism diagnosis after study. None of these diagnosis clarify the patient's current stay in the Hospital.Alcoholism is mentioned clearly.Was not admitted with withdrawal symptoms.Signed out AMA before she was having withdrawal symptoms.She did have complication of Alcoholism which was Pancreatitis. Physician's Response(s): ( ) Alcoholism, uncomplicated ( ) Alcoholism, with withdrawal ( ) Alcoholism, with other complicated, please specify ( ) Alcoholism, unspecified Thank you Candy Fleming Principal Diagnosis: "that condition established after study, to be chiefly responsible for occasioning the admission of the patient to the hospital for care." Co-Existing Principal Diagnosis: "when two or more diagnoses equally meet the criteria for principal diagnosis as determined by the circumstances of admission, diagnostic work up, and/or therapy provided, and the Alphabetic Index, Tabular List, or another coding guideline does not provide sequencing direction, any one of the diagnoses may be sequenced first." "When the physician has documented what appears to be a current diagnosis in the body of the record, but has not included the diagnosis in the final diagnostic statement, the physician should be asked whether the diagnosis should be added." (Source Coding [facility] 2 QTR90. p3-4) JULIO CESAR
== END 2020-06-12 01:43 | disposition left against medical advice (07) | DRG 439 ==
LOC: ED 11:08 → 2N 14:23 → SUATTDRO 14:23 → 2N 14:54